=== PATIENT | male | born 1935 | race Caucasian/White ===

== ENCOUNTER 2016-07-18 15:54 | Inpatient (IN) ==
[2016-07-18] MEDS ORDERED: Ipratropium/Albuterol Neb 3 ML IH ONE (16:25)
--- NOTE | 2016-07-18 17:00 | Emergency Department Note ---
Disposition Clinical Impression: Lower gastrointestinal hemorrhage Pneumonia Qualifiers: Pneumonia type: due to unspecified organism Laterality: left Lung location: lower lobe of lung Qualified Code(s): J18.1 - Lobar pneumonia, unspecified organism Disposition: Admitted As Inpatient Condition: Good Time of Disposition: 18:19 General Adult HPI - General Chief complaint: ED GI Bleed Stated complaint: GI bleed/ C. diff + Time Seen by Provider: 07/18/16 15:59 Source: patient, family, EMS Limitations: no limitations Nursing Notes Reviewed: Yes Vital Signs Reviewed: Yes - History of Present Illness HPI Narrative: [place] being sent [place] the [place] for [place]. One-month history of blood in his stool. Recent discharge on Friday after being treated for septic shock and pneumonia. Patient still having a productive cough and shortness of breath. Does have a history of COPD. Denies any chest pain nausea vomiting or diarrhea. Denies any abdominal pain. Pain Scale: 0 - Related Data Home Medications Medication Instructions Recorded Confirmed Albuterol Neb [Proventil Neb] 2.5 mg IH QID PRN 07/18/16 07/18/16 Aspirin Enteric Coated [Aspirin EC] 81 mg PO DAILY 07/18/16 07/18/16 Calcium Carbonate/Vitamin D3 1 each PO TID 07/18/16 07/18/16 [Calcium 500-Vit D3 200 Tablet] Capsaicin [Arthritis Pain Relief] 1 appl TP BID PRN 07/18/16 07/18/16 Clopidogrel [Plavix] 75 mg PO DAILY 07/18/16 07/18/16 DULoxetine [Cymbalta] 30 mg PO DAILY 07/18/16 07/18/16 Docusate [Colace] 100 mg PO BID 07/18/16 07/18/16 Finasteride [Proscar] 5 mg PO DAILY 07/18/16 07/18/16 Furosemide [Lasix] 40 mg PO QPM 07/18/16 07/18/16 Furosemide [Lasix] 60 mg PO QAM 07/18/16 07/18/16 Gabapentin [Neurontin] 800 mg PO BID 07/18/16 07/18/16 Metoprolol XL (24 HR) Succ [Toprol 50 mg PO DAILY 07/18/16 07/18/16 XL] Moxifloxacin OPTH Drops [Vigamox] 1 drop OP QID 07/18/16 07/18/16 OxyCODONE Immed Rel [Roxicodone 5 10 mg PO BID 07/18/16 07/18/16 MG] Polyethylene Glycol 3350 17 gm PO DAILY 07/18/16 07/18/16 [Smoothlax] Potassium Chloride [K-Tab ER] 20 meq PO DAILY 07/18/16 07/18/16 PrednisoLONE Acetate 1% Opth 1 drop OP AD 07/18/16 07/18/16 [PredFORTE 1%] Sennosides [Senna] 8.6 mg PO BID 07/18/16 07/18/16 Simvastatin [Zocor] 40 mg PO HS 07/18/16 07/18/16 Spironolactone [Aldactone] 25 mg PO DAILY 07/18/16 07/18/16 Terazosin HCl 2 mg PO HS 07/18/16 07/18/16 Tiotropium [Spiriva] 18 mcg IH 0700 07/18/16 07/18/16 Allergies Allergy/AdvReac Type Severity Reaction Status Date / Time No Known Allergies Allergy Verified 07/18/16 16:07 All systems ED: reviewed and negative except as stated. Constitutional: Denies: fever, chills Cardiovascular: Denies: chest pain, palpitations, syncope Respiratory: Reports: cough, sputum production ("Light colored."). Denies: dyspnea Gastrointestinal: Reports: hematochezia. Denies: abdominal pain, nausea, vomiting, diarrhea Genitourinary: Denies: urgency, dysuria, frequency, hematuria Musculoskeletal: Denies: back pain, neck pain Integumentary: Denies: rash Neurological: Denies: headache, weakness Past Medical History - Past Medical History Attestation: Yes The following information was validated with the patient. Medical history: Reports: CHF, COPD, coronary artery disease, GERD, hypertension , myocardial infarction, renal disease, TIA - Social History Smoking Status: Former smoker Alcohol use: Reports: none Drug use: Reports: none Physical Exam - General Limitations: no limitations General appearance: alert, in no apparent distress - Head Head exam: atraumatic, normocephalic - Eye Eye exam: Present: normal appearance, PERRL, EOMI. Absent: scleral icterus - ENT ENT exam: normal exam, normal oropharynx, mucous membranes moist - Neck Neck exam: Present: normal inspection, full ROM, trachea midline - Chest Chest inspection: Present: normal inspection, symmetric chest wall rise - Respiratory Respiratory exam: Present: wheezes (Left-sided.), other (Rhonchi right lower lobe.) - Cardiovascular Cardiovascular exam: Present: regular rate, normal rhythm, normal heart sounds - Abdominal Exam Abdominal exam: Present: soft, Non-Tender, normal bowel sounds - Extremities Exam Extremities exam: Present: normal inspection, full ROM, normal capillary refill. Absent: tenderness, pedal edema - Back Exam Back exam: Present: normal inspection, full ROM. Absent: tenderness - Neurological Exam Neurological exam: Present: alert - Psychiatric Psychiatric exam: Present: normal affect, normal mood - Skin Skin exam: Present: warm, dry, intact, normal color. Absent: rash, cyanosis, diaphoresis Course Course Narrative: Patient being sent from the [place] for [place] and possible C. difficile. Patient is unaware of why he is actually being sent. He states that he was recently admitted to hospital and treated for pneumonia and discharged on Friday. He states that he has been having shortness of breath and a cough ever since. He denies any fevers at home. He denies any diarrhea however does report blood in his stool. Patient has basic lab work done from the [place]. He has paperwork that shows a C. difficile toxin negative from today. Patient's lung sounds or wheezing on the left and rhonchi on the right lower. His heart sounds are normal. He has no other complaints to me at this time. He has no abdominal pain or chest pain. He is on oxygen and wears this at home as well. Does have a history of COPD as well as CHF. Looking through his paperwork of his recent admission he was in septic shock during that time and was placed on Levophed. We will get a chest x-ray while patient is here. There were no images sent from the [place]. We will also given occult blood stool. We will likely admit patient for continued pneumonia. - Reevaluation(s) Reevaluation #1: patient has a left lower lobe pneumonia. Also lower GI bleed. We will admit patient for IV antibiotics and evaluation for the GI bleed. Patient is agreeable to this. He meets criteria for healthcare associated pneumonia. We will begin triple antibody therapy. Time: 18:14 - Consultations Consultation #1: MINDA Cote accepted Pt in stable condition. Time: 18:17 Vital Signs Temperature 98.1 F 05/11/17 15:57 Pulse Rate 83 07/18/16 15:57 Respiratory Rate 18 07/18/16 15:57 Blood Pressure 138/105 07/18/16 15:57 O2 Sat by Pulse Oximetry 95 07/18/16 15:57 Temperature 98.1 F 07/18/16 15:57 Pulse Rate 83 07/18/16 18:41 Respiratory Rate 18 07/18/16 18:41 Blood Pressure 127/66 07/18/16 18:41 O2 Sat by Pulse Oximetry 100 07/18/16 18:41 Oxygen Delivery Oxygen Delivery Nasal Cannula Medical Decision Making - Medical Records Medical records reviewed: Yes I reviewed the patient's medical records. - Lab Data Lab results reviewed: Yes I reviewed the patient's lab results. Result diagrams: 07/18/16 17:55 07/18/16 17:55 Lab Results 07/18/16 07/18/16 07/18/16 Range/Units 16:57 17:55 17:55 Hgb (12.9-16.9) g/dL Hct (37.5-50.1) % Sodium 137 (136-145) mEq/L Potassium 4.0 (3.5-4.5) mEq/L Chloride 100 (98-109) mEq/L Carbon Dioxide 24 (19-29) mEq/L BUN 30 H (8-26) mg/dL Creatinine 1.11 (0.72-1.25) mg/dL Est GFR ( Amer) > 60 (> 60) Est GFR (Non-Af Amer) > 60 (> 60) BUN/Creatinine Ratio 27 H (6-26) Glucose 207 H (70-99) mg/dL Calculated Osmolality 296 (280-300) Lactic Acid (0.5-2.2) mmol/L Calcium 9.4 (8.6-10.8) mg/dL Troponin I 0.23 H* (0-0.03) ng/mL Stool Occult Blood Positive A (Negative) 07/18/16 07/18/16 Range/Units 17:55 17:55 Hgb 9.4 L (12.9-16.9) g/dL Hct 28.5 L (37.5-50.1) % Sodium (136-145) mEq/L Potassium (3.5-4.5) mEq/L Chloride (98-109) mEq/L Carbon Dioxide (19-29) mEq/L BUN (8-26) mg/dL Creatinine (0.72-1.25) mg/dL Est GFR ( Amer) (> 60) Est GFR (Non-Af Amer) (> 60) BUN/Creatinine Ratio (6-26) Glucose (70-99) mg/dL Calculated Osmolality (280-300) Lactic Acid 1.8 (0.5-2.2) mmol/L Calcium (8.6-10.8) mg/dL Troponin I (0-0.03) ng/mL Stool Occult Blood (Negative) - Radiology Data Radiology results reviewed: Yes I reviewed the patient's radiology results. Chest X-Ray 07/18/16 16:24 IMPRESSION: Left lower lobe airspace disease with small pleural effusion, pneumonia suspected D/ / José Miguel Vela MD / José Miguel Vela MD Interpreting Provider: José Miguel Vela MD - EKG Data EKG #1 EKG attestation: Yes I reviewed and interpreted this EKG. EKG results narrative: Normal sinus rhythm at a rate of 80. [place] interval is 174. QRS duration is 145. QT is 384. QTC is 419. Patient has a left bundle branch block. There are no significant changes from previous EKG dated 09/20/2011. Attestation Statement - Attestation Attestation: I, Pavan Garsia, examined this patient and my medical decision-making was reviewed with the HR INTERNSHIP/PA/Advanced Practice Nurse/Resident Physician. I agree with the documented findings, disposition and treatment plan as described except to the extent set forth below. 80[facility], [facility], and possible cardiac thrombus. [facility] negative C. difficile toxin assay, hemoglobin of 9.9. Patient is a poor historian and is unable to give a history regarding his case and presentation however he does state that he is short of breath and feels weak and fatigued. On physical examination patient has rhonchi in the posterior lung [place] bilaterally. His abdomen is soft to palpation and without rigidity, guarding, or rebound. On repeat H&H the patient's hemoglobin is 9.4. Patient has an elevated troponin to 0.23. Patient has a rectal exam that shows melanotic stool and is heme positive. We will not be giving heparin or ASA for elevated troponin secondary to GI bleeding. Patient has no chest pain emergency Department. Patient is comfortable with the plan for admission to hospital for continuation of his care.
[2016-07-18 18:08] LABS: Hematocrit 28.5 % (37.5-50.1); Hemoglobin 9.4 g/dL (12.9-16.9)
[2016-07-18] MEDS ORDERED: Piperacillin/Tazobactam 3.375 GM in D5% in Water (Mini-Bag+) 100 ML IVPB ONE (18:17)
[2016-07-18] MEDS ORDERED: Vancomycin 1,250 MG in D5% in Water 250 ML IVPB ONE (18:17)
[2016-07-18] MEDS ORDERED: Levofloxacin 750 MG/150 ML 750 MG/150 ML BAG IVPB ONE (18:17)
[2016-07-18 18:23] LABS: BUN/Creatinine Ratio 27 (6-26); Blood Urea Nitrogen 30 mg/dL (8-26); Calcium 9.4 mg/dL (8.6-10.8); Carbon Dioxide 24 mEq/L (19-29); Chloride 100 mEq/L (98-109); Glucose 207 mg/dL (70-99); Osmolality,Calculated 296 (280-300); Sodium 137 mEq/L (136-145); eGFR For African Americans > 60 (> 60); eGFR For Non-African Americans > 60 (> 60)
--- NOTE | 2016-07-18 19:07 | Internal Med History&Physical ---
Date of Encounter: 07/18/16 Time of Encounter: 19:07 Internal Medicine - H&P: HPI History of present illness: Mr. Mejia is a 80 year old male Past Med Surg Social Fam HX - Past Medical History Medical history: CHF, COPD, coronary artery disease, GERD, hypertension, myocardial infarction, renal disease, TIA - Social History Smoking Status: Former smoker Alcohol use: none Drug use: none Internal Medicine - H&P: Meds Albuterol Neb [Proventil Neb] 2.5 mg IH QID PRN 07/18/16 [History] Aspirin Enteric Coated [Aspirin EC] 81 mg PO DAILY 07/18/16 [History] Calcium Carbonate/Vitamin D3 [Calcium 500-Vit D3 200 Tablet] 1 each PO TID 07/18 [History] Capsaicin [Arthritis Pain Relief] 1 appl TP BID PRN 07/18/16 [History] Clopidogrel [Plavix] 75 mg PO DAILY 07/18/16 [History] DULoxetine [Cymbalta] 30 mg PO DAILY 07/18/16 [History] Docusate [Colace] 100 mg PO BID 07/18/16 [History] Finasteride [Proscar] 5 mg PO DAILY 07/18/16 [History] Furosemide [Lasix] 40 mg PO QPM 07/18/16 [History] Furosemide [Lasix] 60 mg PO QAM 07/18/16 [History] Gabapentin [Neurontin] 800 mg PO BID 07/18/16 [History] Metoprolol XL (24 HR) Succ [Toprol XL] 50 mg PO DAILY 07/18/16 [History] Moxifloxacin OPTH Drops [Vigamox] 1 drop OP QID 07/18/16 [History] OxyCODONE Immed Rel [Roxicodone 5 MG] 10 mg PO BID 07/18/16 [History] Polyethylene Glycol 3350 [Smoothlax] 17 gm PO DAILY 07/18/16 [History] Potassium Chloride [K-Tab ER] 20 meq PO DAILY 07/18/16 [History] PrednisoLONE Acetate 1% Opth [PredFORTE 1%] 1 drop OP AD 07/18/16 [History] Sennosides [Senna] 8.6 mg PO BID 07/18/16 [History] Simvastatin [Zocor] 40 mg PO HS 07/18/16 [History] Spironolactone [Aldactone] 25 mg PO DAILY 07/18/16 [History] Terazosin HCl 2 mg PO HS 07/18/16 [History] Tiotropium [Spiriva] 18 mcg IH 0700 07/18/16 [History] Allergies No Known Allergies Allergy (Verified 07/18/16 16:07) All Systems PM: A 10-system review of systems was performed and is negative for pertinent findings except as documented above in the HPI. - Constitutional Vitals: Temp Pulse Resp BP Pulse Ox 98.1 F 83 18 127/66 100 07/18/16 15:57 07/18/16 18:41 07/18/16 18:41 07/18/16 18:41 07/18/16 18:41 Internal Med - H&P Results - Labs CBC & Chem 7: 07/18/16 17:55 07/18/16 17:55
[2016-07-18] MEDS ORDERED: Naloxone 0.4 MG/ML INJ IVP PRN (21:03)
[2016-07-18] MEDS ORDERED: Ipratropium/Albuterol Neb 3 ML IH PRN (21:08)
--- NOTE | 2016-07-18 21:36 | Internal Med History&Physical ---
<Mati Vera - Last Filed: 07/18/16 21:31> Date of Encounter: 07/18/16 Time of Encounter: 21:31 Assessment and Plan (1) Lower gastrointestinal hemorrhage Current visit: Yes Status: Acute Hemoccult-positive stool with a hemoglobin of 9.4 presentation. Per records the patient has had one stool for over a month however the patient denies this but he is somewhat a poor historian. We will hold aspirin and Plavix. We will trend hemoglobin, consult GI. Type and screen. (2) Pneumonia Current visit: Yes Status: Acute Patient was recently admitted for septic shock due to pneumonia at [facility] and was discharged on July 26. Patient did not require intubation. Patient was treated with Rocephin, Zithromax, vancomycin. Patient has persistent left lower lobe infiltrate on chest x-ray however clinically he does not have any signs or symptoms of pneumonia. I do believe the x-ray findings are residual from his recent pneumonia therefore we will hold off on treating with antibiotics at this time. Qualifiers: Pneumonia type: due to unspecified organism Laterality: unspecified laterality Lung location: unspecified part of lung Qualified Code(s): J18.9 - Pneumonia, unspecified organism (3) Coronary artery disease Current visit: Yes Status: Acute Stable this time. Patient is on dual antiplatelet therapy however there is nothing in the records that indicates a stent placement in the last year and therefore will hold aspirin and Plavix due to concern for GI bleed as discussed above. Patient does have a minor elevated troponin but EKG is no signs of ischemic changes and the patient has no complaints of chest pain. We will trend troponins, obtain an echo. Qualifiers: Coronary Disease-Associated Artery/Lesion type: unspecified vessel or lesion type [place] vs. transplanted heart: [place] heart Associated angina: without angina Qualified Code(s): I25.10 - Atherosclerotic heart disease of [place] coronary artery without angina pectoris (4) COPD (chronic obstructive pulmonary disease) Current visit: Yes Status: Acute Stable this time. No evidence of exacerbation. When necessary duo nebs. Qualifiers: COPD type: unspecified COPD Qualified Code(s): J44.9 - Chronic obstructive pulmonary disease, unspecified (5) Ischemic cardiomyopathy Current visit: Yes Status: Acute With defibrillator present. No evidence of arrhythmia. We will obtain an echo. (6) Hypertension Current visit: Yes Status: Acute Stable this time. Continue home medications. Qualifiers: Hypertension type: essential hypertension Qualified Code(s): I10 - Essential (primary) hypertension (7) DVT prophylaxis Current visit: Yes Status: Acute Due to concern for GI bleed pharmacologic DVT prophylaxis is contraindicated at this time. We will use EPCDs. Internal Medicine - H&P: HPI Chief complaint: GI bleed Admitted From: Emergency Dept Plans for Post Hospital Care: Home History of present illness: Mr. Mejia is a 80 year old male with history of COPD, recent pneumonia is admitted for GI bleed. Patient is an extremely poor historian so history is somewhat limited. Patient was recently hospitalized at [facility] in [place] for septic shock due to pneumonia. Patient was discharged on July 16. [facility] for concerns for GI bleed. Per records review the patient has had one month of blood in the stool however the patient denied blood in the stool to me. Patient does report mild shortness of breath but otherwise denies cough, fever, chills. Patient has no other complaints at this time. Patient states that he feels pretty good. Past Med Surg Social Fam HX - Past Medical History Medical history: CHF, COPD, coronary artery disease, GERD, hypertension, myocardial infarction, renal disease, TIA - Past Surgical History Surgical History: non-contributory - Social History Smoking Status: Former smoker Alcohol use: none Drug use: none Internal Medicine - H&P: Meds Albuterol Neb [Proventil Neb] 2.5 mg IH QID PRN 07/18/16 [History] Aspirin Enteric Coated [Aspirin EC] 81 mg PO DAILY 07/18/16 [History] Calcium Carbonate/Vitamin D3 [Calcium 500-Vit D3 200 Tablet] 1 each PO TID 07/18 [History] Capsaicin [Arthritis Pain Relief] 1 appl TP BID PRN 07/18/16 [History] Clopidogrel [Plavix] 75 mg PO DAILY 07/18/16 [History] DULoxetine [Cymbalta] 30 mg PO DAILY 07/18/16 [History] Docusate [Colace] 100 mg PO BID 07/18/16 [History] Finasteride [Proscar] 5 mg PO DAILY 07/18/16 [History] Furosemide [Lasix] 40 mg PO QPM 07/18/16 [History] Furosemide [Lasix] 60 mg PO QAM 07/18/16 [History] Gabapentin [Neurontin] 800 mg PO BID 07/18/16 [History] Metoprolol XL (24 HR) Succ [Toprol XL] 50 mg PO DAILY 07/18/16 [History] Moxifloxacin OPTH Drops [Vigamox] 1 drop OP QID 07/18/16 [History] OxyCODONE Immed Rel [Roxicodone 5 MG] 10 mg PO BID 07/18/16 [History] Polyethylene Glycol 3350 [Smoothlax] 17 gm PO DAILY 07/18/16 [History] Potassium Chloride [K-Tab ER] 20 meq PO DAILY 07/18/16 [History] PrednisoLONE Acetate 1% Opth [PredFORTE 1%] 1 drop OP AD 07/18/16 [History] Sennosides [Senna] 8.6 mg PO BID 07/18/16 [History] Simvastatin [Zocor] 40 mg PO HS 07/18/16 [History] Spironolactone [Aldactone] 25 mg PO DAILY 07/18/16 [History] Terazosin HCl 2 mg PO HS 07/18/16 [History] Tiotropium [Spiriva] 18 mcg IH 0700 07/18/16 [History] Allergies No Known Allergies Allergy (Verified 07/18/16 16:07) ROS unobtainable: due to mental status (Poor historian unable to complete review of systems.) All Systems PM: A 10-system review of systems was performed and is negative for pertinent findings except as documented above in the HPI. - Constitutional Vitals: Temp Pulse Resp BP Pulse Ox 97.3 F L 81 16 145/84 99 07/18/16 20:14 07/18/16 20:14 07/18/16 20:14 07/18/16 20:14 07/18/16 20:14 General appearance: Present: A&O X 2 (Person and place but not time), pleasant, no acute distress - Head Head exam: Present: atraumatic, normal inspection, normocephalic - ENT ENT exam: Present: mucous membranes moist - Respiratory Respiratory exam: Present: CTAB. Absent: rales, respiratory distress, rhonchi, wheezes, tachypnea - Cardiovascular Cardiovascular exam: Present: RRR. Absent: gallop, rubs, systolic murmur - GI/Abdominal GI/Abdominal exam: Present: normal bowel sounds, soft. Absent: distended, tenderness - Rectal Rectal exam: Present: deferred - Extremities Exam Extremities exam: Present: warm. Absent: pedal edema, tenderness - Neurological Exam Neurological exam: Present: alert, no focal deficits. Absent: oriented X3 ( Oriented to person and place only.) Internal Med - H&P Results - Labs CBC & Chem 7: 07/18/16 17:55 07/18/16 17:55 <NorbertopamFermín Eleazar - Last Filed: 07/19/16 00:14> Date of Encounter: 07/18/16 Internal Medicine - H&P: HPI History of present illness: Mr. Mejia is a 80 year old male Past Med Surg Social Fam HX - Additional Family History Additional family history: could not be obtained due to dementia All Systems PM: A 10-system review of systems was performed and is negative for pertinent findings except as documented above in the HPI. - Constitutional Vitals: Temp Pulse Resp BP Pulse Ox 97.3 F L 81 16 145/84 99 07/18/16 20:14 07/18/16 20:14 07/18/16 20:14 07/18/16 20:14 07/18/16 20:14 Internal Med - H&P Results - Labs CBC & Chem 7: 07/18/16 21:35 07/18/16 17:55 Labs: Short CBC 07/18/16 Range/Units 21:35 WBC 12.1 H (4.3-11.1) K/mcL Hgb 8.6 L (12.9-16.9) g/dL Hct 26.0 L (37.5-50.1) % Plt Count 241 (140-400) K/mcL Neutrophils # 9.8 H (1.6-8.9) K/mcL - Diagnostic Studies Chest x-ray Status: image reviewed by me - Attending Attestation I personally interviewed and examined this patient and my medical decision- making was reviewed with the Resident Physician. I agree with the documented findings, disposition and treatment plan as described.
[2016-07-18 21:43] LABS: Basophils % 0.1 %; Hemoglobin 8.6 g/dL (12.9-16.9); Immature Granulocytes % 2.6 % (0-4); Lymphocytes # 1.1 K/mcL (0.6-4.6); Lymphocytes % 9.3 %; Mean Corpuscular HGB Conc 33.1 g/dL (31.6-35.5); Mean Corpuscular Hemoglobin 29.8 pg (28.0-33.3); Mean Platelet Volume 9.9 fL (9.4-12.4); Monocytes # 0.9 K/mcL (0.0-1.3); Monocytes % 7.1 %; Neutrophils # 9.8 K/mcL (1.6-8.9); Nucleated Red Blood Cells 0.2 /100 WBC (0); Platelet Count 241 K/mcL (140-400); Red Blood Count 2.89 M/mcL (4.19-5.50); Segmented Neutrophils % 80.9 %
[2016-07-18 21:48] LABS: INR 1.5; Prothrombin Time 16.2 Seconds (9.4-12.1)
[2016-07-19 01:57] LABS: Hematocrit 24.7 % (37.5-50.1); Hemoglobin 8.3 g/dL (12.9-16.9)
[2016-07-19 06:55] LABS: BUN/Creatinine Ratio 24 (6-26); Blood Urea Nitrogen 24 mg/dL (8-26); Calcium 8.5 mg/dL (8.6-10.8); Carbon Dioxide 27 mEq/L (19-29); Chloride 102 mEq/L (98-109); Glucose 168 mg/dL (70-99); Osmolality,Calculated 292 (280-300); Potassium 3.8 mEq/L (3.5-4.5); Sodium 137 mEq/L (136-145); eGFR For African Americans > 60 (> 60); eGFR For Non-African Americans > 60 (> 60)
[2016-07-19 07:12] LABS: Basophils % 0.1 %; Hematocrit 25.2 % (37.5-50.1); Hemoglobin 8.4 g/dL (12.9-16.9); Immature Granulocytes % 1.9 % (0-4); Lymphocytes # 1.1 K/mcL (0.6-4.6); Lymphocytes % 10.6 %; Mean Corpuscular HGB Conc 33.3 g/dL (31.6-35.5); Mean Corpuscular Hemoglobin 30.4 pg (28.0-33.3); Mean Corpuscular Volume 91.3 fL (83.0-100.0); Mean Platelet Volume 10.5 fL (9.4-12.4); Monocytes # 0.9 K/mcL (0.0-1.3); Monocytes % 8.5 %; Neutrophils # 8.4 K/mcL (1.6-8.9); Nucleated Red Blood Cells 0.2 /100 WBC (0); Platelet Count 231 K/mcL (140-400); Red Blood Count 2.76 M/mcL (4.19-5.50); Red Cell Distribution Width 14.3 % (11.5-14.5); Segmented Neutrophils % 78.9 %
--- NOTE | 2016-07-19 08:41 | Gastroenterology Consult Note ---
<Celi Starr - Last Filed: 07/19/16 08:50> Date of Encounter: 07/19/16 Time of Encounter: 08:35 - Assessment and plan (1) Anemia Current Visit: Yes Status: Acute Assessment and plan: Dropped from 9.4 to 8.3 currently. Has been typed/crossed. Has elevated troponins in initial labs. Qualifiers: Anemia type: unspecified type Qualified Code(s): D64.9 - Anemia, unspecified (2) GIB (gastrointestinal bleeding) Current Visit: Yes Status: Acute Assessment and plan: EGD today to r/o esophagitis, gastritis, duodenitis, PUD, MW tear, polyp, tumor , varices. Consent was obtained from spouse, Anny Mejia via telephone with another RN. Qualifiers: GI bleed type/associated pathology: unspecified gastrointestinal hemorrhage type Qualified Code(s): K92.2 - Gastrointestinal hemorrhage, unspecified - Time Spent With Patient Total time spent is greater than 50% in coordination of care (as documented) at patient's floor/unit and/or counseling patient: less than 15 minutes GI History of Present Illness - Data of Consult Patient: new to practice Consult date: 07/19/16 Requesting Physician: Jean Maya DO - Consult Narrative Reason for consult: GIB History of present illness: Mr. Mejia is a 80 year old male with a PMH significant for COPD, cardiomyopathy with AICD, home oxygen use, CHF. Patient was recently hospitalized at [facility] in [place] for septic shock due to pneumonia. Patient was discharged on July 16. [facility] for concerns for GI bleed. C. diff testing negative at [facility]. Patient is unaware of why he is actually being sent and a poor historian. He admitted he had been having rectal bleeding but that had stopped. CHRISTIANO in ED revealed melena and positive hemocult testing. Patient denies any other complaints during my exam. Patient denies knowledge of prior colonoscopy/EGD procedures. Denies dysphagia, N/V, indigestion/heartburn, abd pain. Colonoscopy: None noted EGD: None noted Past Med Surg Social Fam HX - Past Medical History Medical history: CHF, COPD, coronary artery disease, GERD, hypertension, myocardial infarction, renal disease, TIA - Past Surgical History Surgical History: non-contributory - Social History Smoking Status: Former smoker Alcohol use: none Drug use: none - Gastrointestinal Anticoagulation Use: Plavix Number of BM Per Day: daily Gastrointestinal: Present: hematochezia - Constitutional Constitutional: as per HPI - EENT Eyes: as per HPI Ears: Present: as per HPI Nose, mouth and throat: Present: as per HPI - Cardiovascular Cardiovascular ROS: Present: as per HPI - Respiratory Respiratory IM: Present: dyspnea - Neurological ROS Neurological GI: Present: as per HPI - Hematologic/Lymphatic Hematologic/Lymphatic pediatric: Present: as per HPI - Musculoskeletal Musculoskeletal ROS GI: Present: as per HPI - Integumentary Integumentary GI: Present: as per HPI - Psychiatric ROS Psychiatric GI: Present: as per HPI - Endocrine Endocrine IM: Present: as per HPI - Constitutional Vitals: Temp Pulse Resp BP Pulse Ox 98.2 F 69 16 124/72 97 07/19/16 07:36 07/19/16 07:36 07/19/16 07:36 07/19/16 07:36 07/19/16 07:36 General appearance: Present: A&O X 2, pleasant, no acute distress, answers questions appropriately - Head Head exam: Present: atraumatic, normocephalic - Eye Eye exam: Present: normal appearance, sclera anicteric - ENT ENT exam: Present: mucous membranes moist - Neck Neck exam general surgery: Present: normal inspection, trachea midline - Respiratory Respiratory exam: Present: wheezes - Cardiovascular Cardiovascular exam: Present: RRR, +S1, +S2 Additional comments: PM/AICD L upper chest - GI/Abdominal GI/Abdominal exam: Present: normal bowel sounds, soft, no peritoneal signs - Rectal Rectal exam: Present: deferred - Extremities Exam Extremities exam: Present: warm - Neurological Exam Neurological exam: Present: no focal deficits - Psychiatric Psychiatric exam: Present: normal affect, normal mood - Skin Skin exam: Present: dry, intact, normal color, warm Results - Labs CBC & Chem 7: 07/19/16 06:34 07/19/16 06:34 Labs: Last Result Calcium 8.5 mg/dL (8.6-10.8) L 07/19/16 06:34 Troponin I 0.22 ng/mL (0-0.03) H* 07/19/16 06:34 Stool Occult Blood Positive (Negative) A 07/18/16 16:57 Entire Visit Hgb 8.4 g/dL (12.9-16.9) L 07/19/16 06:34 Hct 25.2 % (37.5-50.1) L 07/19/16 06:34 PT 16.2 Seconds (9.4-12.1) H 07/18/16 21:35 - ABG ABG results: PT/INR, D-dimer PT 16.2 Seconds (9.4-12.1) H 07/18/16 21:35 Consult Discharge Plan - Plan [facility]errals: [facility]Primary Care Provider[facility] - <Matias Sandoval - Last Filed: 07/19/16 09:27> Date of Encounter: 07/19/16 - Time Spent With Patient Total time spent is greater than 50% in coordination of care (as documented) at patient's floor/unit and/or counseling patient: GI History of Present Illness - Data of Consult Requesting Physician: Jean Maya DO - Consult Narrative History of present illness: Mr. Mejia is a 80 year old male - Constitutional Vitals: Temp Pulse Resp BP Pulse Ox 98.2 F 78 16 138/78 99 07/19/16 08:56 07/19/16 09:10 07/19/16 09:10 07/19/16 09:10 07/19/16 09:10 Results - Labs CBC & Chem 7: 07/19/16 06:34 07/19/16 06:34 Labs: Last Result Calcium 8.5 mg/dL (8.6-10.8) L 07/19/16 06:34 Troponin I 0.22 ng/mL (0-0.03) H* 07/19/16 06:34 Stool Occult Blood Positive (Negative) A 07/18/16 16:57 Entire Visit Hgb 8.4 g/dL (12.9-16.9) L 07/19/16 06:34 Hct 25.2 % (37.5-50.1) L 07/19/16 06:34 PT 16.2 Seconds (9.4-12.1) H 07/18/16 21:35 - ABG ABG results: PT/INR, D-dimer PT 16.2 Seconds (9.4-12.1) H 07/18/16 21:35 - Attending Attestation I examined this patient and my medical decision-making was reviewed with the HAND INSERTER OPERATOR/PA/Advanced Practice Nurse/Resident Physician. I agree with the documented findings, disposition and treatment plan as described except to the extent set forth below.
[2016-07-19] MEDS ORDERED: *HR* Midazolam HCl 5 MG/5 ML VIAL IVP ONE (08:44)
[2016-07-19] MEDS ORDERED: *HR* FentaNYL (PF) 100 MCG/2 ML VIAL ONE (08:44)
[2016-07-19] MEDS ORDERED: *HR* Midazolam HCl 5 MG/5 ML VIAL IVP PRN (08:47)
[2016-07-19] MEDS ORDERED: Simethicone 40 MG/0.6 ML MLS IR ONE (08:47)
[2016-07-19] MEDS ORDERED: Tetracaine/Benzocaine/Butamben 200MG/SPRAY (100SPY/BOT) MM ONE (08:47)
[2016-07-19] MEDS ORDERED: *HR* FentaNYL (PF) 100 MCG/2 ML VIAL IVP PRN (08:47)
--- NOTE | 2016-07-19 08:47 | Pre-Sedation Evaluation ---
Pre-sedation evaluation - Pre-sedation checklist Date of procedure: 07/19/16 Recent Vitals: Last Vital Signs Temp 98.2 F 07/19/16 07:36 Pulse 69 07/19/16 07:36 Resp 16 07/19/16 07:36 BP 124/72 07/19/16 07:36 Pulse Ox 97 07/19/16 07:36 ASA Classification *see protocol: CLASS III-Severe systemic disease Plan of Care: Pt appropriate candidate for procedure/moderate/conscious sedation , Risks/benefits of procedure/sedation discussed w/ patient/family
[2016-07-19] MEDS ORDERED: 0.9 % Sodium Chloride 1,000 ML IVC SCH (09:00)
[2016-07-19] MEDS: Pantoprazole 40 MG in 0.9 % Sodium Chloride Mini Bag 100 ML IVC SCH ×2 (10:52→18:14)
[2016-07-19] MEDS ORDERED: Perflutren Lipid Microsphere 1.3 ML in 0.9 % Sodium Chloride 8.7 ML IVP ONE (11:58)
[2016-07-19] MEDS ORDERED: Perflutren Lipid Microsphere 2 ML VIAL ONE (12:01)
--- NOTE | 2016-07-19 13:02 | ECHO - Doppler Report ---
Echo with Imaging Enhancement Agent Name: Bk Mejia Date of Study: 07/19/2016 Date: 1935 Ht: 69.0 in Medical Record#: [id number] Age: 80 Wt: 174.0 lb Gender: Male BSA: 1.95 Order #: [id number] Location: [facility] Room #: [id number] Reading Physician: Darian Hutchison DO, [facility], [place] [employer] Administrator: Ariana Fischer RVT, [facility] Ordering Physician: Mati Vera DO Primary Physician: [facility] Indications: Elevated trop Impressions: LVEF 30%. Normal LV chamber size. Severe global left ventricular systolic dysfunction. Atypical septal motion consistent with paced rhythm. Mild left ventricular diastolic dysfunction. There is a left ventricular apical thrombus. Normal right ventricular structure and function. No evidence of pulmonary hypertension. A device lead was visualized in the right atrium and right ventricle. No significant valvular dysfunction. Dr. Vera notified of findings via [employer]. Left Ventricular Wall Motion: Rest Echo Findings The apex, apical inferior, mid inferior, basal inferior, apical anterior, mid anterior, basal anterior, apical septal, mid inferior septal, basal inferior septal, apical lateral, mid anterior lateral, basal anterior lateral, mid anterior septal, mid inferior lateral, basal anterior septal and basal inferior lateral bell were hypokinetic. Findings: Study Quality * Technically adequate exam. ECG Findings * Sinus rhythm with BBB. Left Ventricle * LVEF 30%. * Normal LV chamber size. * Severe global left ventricular systolic dysfunction. * Atypical septal motion consistent with paced rhythm. * Mild left ventricular diastolic dysfunction. * There is a left ventricular apical thrombus. Right Ventricle * Normal right ventricular structure and function. Left Atrium * Mildly dilated left atrium. Right Atrium * Mildly dilated right atrium. Interatrial Septum * Interatrial septum not well evaluated. Aortic Valve * Aortic valve not well visualized. * No aortic regurgitation. * No aortic stenosis. Mitral Valve * Normal mitral valve structure and function. * No mitral stenosis. * Trace mitral regurgitation. Tricuspid Valve * Normal tricuspid valve structure and function. * Trace tricuspid regurgitation. * No evidence of pulmonary hypertension. Pulmonic Valve * Pulmonic valve not well visualized. Aorta * Normally sized aortic root. Pericardium * The pericardium appears normal. IVC * Normal IVC dimensions and inspiratory collapse. Device lead * A device lead was visualized in the right atrium and right ventricle. Pulmonary Artery * Normal visualized portions of the main pulmonary artery. History Hypertension History of CAD/PTCA Myocardial Infarction Congestive Heart Failure Pacer/ICD Implant 09/18/2011 a Previous Echo was performed. Contrast: Definity 1.3 ml in 8.7 ml of saline 3 ml. Measurements: BP: 138/ 78 2D Normal Values RVIDd: 3.00 cm <2.7 cm IVSd: 1.10 cm 0.6 - 1.0 cm LVIDd: 5.70 cm 3.7 - 5.6 cm LVPWd: 1.00 cm 0.6 - 1.1 cm LVIDs: 4.30 cm 1.5 - 3.6 cm AO: 3.00 cm < 4.0 cm LA: 3.90 cm 2.0 - 4.0cm %FS: 24.60 cm >25 % LA volume: 30 Mitral Valve Dec Time:275.00 msec Peak E:.77 m/sec Peak A:.99 m/sec E/A Ratio:0.8 Peak E' Lat Calixto:6.43 cm/s Peak E' Med Calixto:4.87 cm/s E/E' Lat Ratio:12 E/E' Med Ratio:15.9 Tricuspid Valve TV Regurg Peak Grad: 37.00mmHg TV Regurg Peak Calixto: 3.03m/sec Updated by Darian Hutchison DO, FACLavinia, [place], HEATHER on 07/19/2016 12:55:28 PM electronically signed on 07/19/2016 12:57:36 PM with status of Final Wall Motion Hoffmann: 1=Normal, 2=Hypokinesis, 3=Akinesis, 4=Dyskinesis, 5=Aneurysmal, 6=Hyperkinetic, X=Not Visualized (Blank)=Missing
--- NOTE | 2016-07-19 13:30 | Electrocardiograph Report ---
[place] [id number] Test Date: 2016-07-18 Pat Name: Bk Mejia Department: 105 Room: [facility] Gender: M Communications Planner: KHLOE : 1935 Requested By: Liset Briones Order Number: [id number] Reading MD: Pavan Diane Measurements Intervals [place] Rate: 80 P: 36 WY: 174 QRS: -40 QRSD: 145 T: 99 QT: 384 QTc: 419 Interpretive Statements SINUS RHYTHM LEFT BUNDLE BRANCH BLOCK Electronically Signed On 07-19-2016 13:28:40 EDT by Pavan Diane
--- NOTE | 2016-07-19 13:33 | Cardiology Consult Note ---
Date of Encounter: 07/19/16 Time of Encounter: 13:32 Assessment and Plan (1) LV (left ventricular) mural thrombus Current Visit: Yes Status: Acute LV thrombus seen on TTE. Anticoagulation with warfarin is recommended. Unfortunately he presented with possible GI bleed and acute anemia. Seen to have luiz's esophogus, hiatal hernia, and non-bleeding ulcers seen. Bleeding risk is high. Would benefit from finding source of bleeding d/t high risk of not being anticoagulated. LV thrombus is mentioned in his history although there is no record. May not be a new finding. We will continue to follow. (2) Coronary artery disease Current Visit: Yes Status: Acute H/o of previous PCI and severe 3 vessel CAD seen on [facility] in 2013. Pt declined CABG at that time. Continue statin and bb. Asa on hold d/t bleeding. Restart when ok from GI standpoint. He declines chest pain. Qualifiers: Coronary Disease-Associated Artery/Lesion type: unspecified vessel or lesion type [place] vs. transplanted heart: [place] heart Associated angina: without angina Qualified Code(s): I25.10 - Atherosclerotic heart disease of [place] coronary artery without angina pectoris (3) Ischemic cardiomyopathy Current Visit: Yes Status: Acute EF 30% on current TTE. TTE showed global systolic dysfunction. Atypical septal motion (LBBB), mild diastolic dysfunction, LV apical thrombus. Normal RV size and structure. [facility] EF 25% with severe global hypokenesis with grade three diastolic dysfunction. Restart toprol XL. Add rossana inhibitor if b/p tolerates. Currently euvolemic on exam. ICD in place. Low sodium diet and daily weights. (4) Elevated troponin Current Visit: Yes Status: Acute Troponin elevated at 0.23, 0.22. Demand ischemia in the setting of acute anemia , GI bleed. TTE shows EF improved from May. He denies chest pain. Discussion w patient/family: The assessment and plan as outlined above was discussed with the patient and/or family members who expressed understanding and agreement. All questions were answered. Thank you for involving us in the care of your patient. Please call with any questions. History of Present Illness Consult date: 07/19/16 Requesting physician: Jean Maya Consult reason: LV thrombus Chief complaint: SOB and cough History of present illness: Mr. Mejia is a 80 year old male with history of severe three vessel CAD, ICMP, ICD, COPD on home O2 who [facility] He was reported to have blood in his stool. He was recently hospitalized at [facility] in [place] with pneumonia. Hgb at [facility] was 12.5. Hgb 9.4 on admission to [place]. Troponin elevated at 0.23. Echocardiogram was ordered and LV thrombus seen. Cardiology consulted for further evaluation. He denies active bleeding. Aspirin and plavix held. EGD showed barrets esophogus , hiatal hernia, and non-bleeding ulcers. Hgb 8.4 today. He reports history of intra cardiac thrombus that may have been diagnosed recently at [facility]. He is not on coumadin and does not remember discussing anticoagulation. He is a poor historian. He has h/o previous PCI. LHC 09/2011 showed severe three vessel CAD. EF 25%. He was recommended for CABG at that time. He declined and opted for medical management. He denies chest pain or palpitations. Past Med Surg Social Fam HX - Past Medical History Attestation: Yes The following information was validated with the patient. Medical history: CHF, COPD, coronary artery disease, GERD, hypertension, myocardial infarction, renal disease, TIA - Past Surgical History Surgical History: non-contributory - Social History Smoking Status: Former smoker Alcohol use: none Drug use: none Medications and Allergies Albuterol Neb [Proventil Neb] 2.5 mg IH QID PRN 07/18/16 [History] Aspirin Enteric Coated [Aspirin EC] 81 mg PO DAILY 07/18/16 [History] Calcium Carbonate/Vitamin D3 [Calcium 500-Vit D3 200 Tablet] 1 each PO TID 07/18 [History] Capsaicin [Arthritis Pain Relief] 1 appl TP BID PRN 07/18/16 [History] Clopidogrel [Plavix] 75 mg PO DAILY 07/18/16 [History] DULoxetine [Cymbalta] 30 mg PO DAILY 07/18/16 [History] Docusate [Colace] 100 mg PO BID 07/18/16 [History] Finasteride [Proscar] 5 mg PO DAILY 07/18/16 [History] Furosemide [Lasix] 40 mg PO QPM 07/18/16 [History] Furosemide [Lasix] 60 mg PO QAM 07/18/16 [History] Gabapentin [Neurontin] 800 mg PO BID 07/18/16 [History] Metoprolol XL (24 HR) Succ [Toprol XL] 50 mg PO DAILY 07/18/16 [History] Moxifloxacin OPTH Drops [Vigamox] 1 drop OP QID 07/18/16 [History] OxyCODONE Immed Rel [Roxicodone 5 MG] 10 mg PO BID 07/18/16 [History] Polyethylene Glycol 3350 [Smoothlax] 17 gm PO DAILY 07/18/16 [History] Potassium Chloride [K-Tab ER] 20 meq PO DAILY 07/18/16 [History] PrednisoLONE Acetate 1% Opth [PredFORTE 1%] 1 drop OP AD 07/18/16 [History] Sennosides [Senna] 8.6 mg PO BID 07/18/16 [History] Simvastatin [Zocor] 40 mg PO HS 07/18/16 [History] Spironolactone [Aldactone] 25 mg PO DAILY 07/18/16 [History] Terazosin HCl 2 mg PO HS 07/18/16 [History] Tiotropium [Spiriva] 18 mcg IH 0700 07/18/16 [History] Allergies No Known Allergies Allergy (Verified 07/18/16 16:07) All Systems Review: A 10-system review of systems was performed and is negative for pertinent findings except as documented above in the HPI. Physical Examination Vital Signs Temp Pulse Resp BP Pulse Ox 07/19/16 09:10 78 16 138/78 99 07/19/16 09:05 80 16 143/81 96 07/19/16 09:00 70 16 145/73 94 07/19/16 08:56 98.2 F 79 16 135/79 94 07/19/16 08:00 99 07/19/16 07:36 98.2 F 69 16 124/72 97 07/19/16 04:26 98.1 F 62 18 134/77 100 07/19/16 00:00 98.2 F 70 18 160/91 100 07/18/16 20:14 97.3 F L 81 16 145/84 99 07/18/16 19:49 18 132/75 07/18/16 19:44 81 18 126/67 100 07/18/16 18:41 83 18 127/66 100 07/18/16 18:04 81 20 141/72 100 07/18/16 16:39 100 07/18/16 16:31 18 100 07/18/16 15:57 98.1 F 83 18 138/105 95 Intake and Output 07/18/16 07/19/16 07/19/16 23:59 07:59 15:59 Intake Total 0 / 0 0 / 0 200 / 200 Output Total 150 / 150 Balance 0 / 0 -150 / -150 200 / 200 Intake: IV Fluids 200 / 200 0.9 % Sodium Chloride 1, 200 / 200 000 ML @ 50 mls/hr IVC . Q20H RASHMI Rx#:[id number] Oral 0 / 0 0 / 0 Output: Urine 150 / 150 Other: # Voids 0 0 Weight 76.2 kg General: Conversant, No Apparent Distress HEENT: Atraumatic, Normocephaly, Mucus Membranes Moist Neck: No JVD, Normal carotid pulses Cardiac: Reg Rate and Rhythm, Normal S1 and S2, No Murmur Lungs: Normal Breath Sounds, No Wheeze, Rales, Rhonchi Neuro: Alert and responsive, No focal deficits noted Abdomen: Soft, Non-Tender Skin: No rashes noted on visualized skin Musculoskeletal: No Chest Wall Tenderness Extremities: No Clubbing, No Cyanosis, No Edema, Normal Pulses Results 07/19/16 06:34 07/19/16 06:34 Lab Results 07/18/16 07/18/16 07/19/16 21:35 21:35 00:32 WBC 12.1 H Hgb 8.6 L Hct 26.0 L Plt Count 241 INR 1.5 Sodium Potassium Chloride Carbon Dioxide BUN Creatinine Glucose Calcium Magnesium Troponin I 0.27 H* 07/19/16 07/19/16 07/19/16 00:32 06:34 06:34 WBC 10.7 Hgb 8.3 L 8.4 L Hct 24.7 L 25.2 L Plt Count 231 INR Sodium 137 Potassium 3.8 Chloride 102 Carbon Dioxide 27 BUN 24 Creatinine 1.02 Glucose 168 H Calcium 8.5 L Magnesium 2.0 Troponin I 07/19/16 06:34 WBC Hgb Hct Plt Count INR Sodium Potassium Chloride Carbon Dioxide BUN Creatinine Glucose Calcium Magnesium Troponin I 0.22 H* - Imaging and Cardiology Echo: report reviewed - EKG Interpretation EKG results cardiology: personally reviewed (SR with LBBB) Consult Discharge Plan - Plan [facility]errals: [facility] [Primary Care Provider] -
--- NOTE | 2016-07-19 17:09 | Internal Med Progress Note ---
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 Patient is on PPI drip and Carafate. We will do every 6 H&H's. Qualifiers: GI bleed type/associated pathology: unspecified gastrointestinal hemorrhage type Qualified Code(s): K92.2 - Gastrointestinal hemorrhage, unspecified (2) Pneumonia Current Visit: Yes Status: Resolved Assessment and plan: Patient was in [facility] with septic shock secondary to continue current pneumonia. He was treated with Rocephin and Zithromax. Chest x-ray shows left lower lobe opacity. This seems to be residual from previous pneumonia. There is no clinical indication the patient has pneumonia. He is not hypoxic, do, tachycardic. afebrile. WBC is within normal limits. Lactic acid is 1.9. Lung sounds are clear. Qualifiers: Pneumonia type: due to unspecified organism Laterality: unspecified laterality Lung location: unspecified part of lung Qualified Code(s): J18.9 - Pneumonia, unspecified organism (3) COPD (chronic obstructive pulmonary disease) Current Visit: Yes Status: Acute Assessment and plan: Continue DuoNeb. Patient is not in acute exacerbation. Continue 2 L oxygen. Qualifiers: COPD type: unspecified COPD Qualified Code(s): J44.9 - Chronic obstructive pulmonary disease, unspecified (4) Ischemic cardiomyopathy Current Visit: Yes Status: Acute Assessment and plan: Patient history of ischemic cardiomyopathy with EF of 25%. Patient's previous PCI with 3 vessel coronary artery disease seen on left heart catheter in 2013 patient declined At that time. There is no sign of volume overload. Has elevated troponins, likley 2nd to GI bleed, acute anemia. EF improved from previous ECHO. No active CP. He underwent an echocardiogram today showing a new apical left ventricular thrombus. LVEF 30% Cardiology recommends initiating patient on anticoagulation. Patient is a high risk for bleeding as he presented with an upper GI bleed. He has large nonbleeding duodenal ulcers. We will obtain every 4 H&H's. Cardiology examine patient's device but show no concerns for arrhythmia. We will continue statin and beta alexandra. (5) DVT prophylaxis Current Visit: Yes Status: Acute Assessment and plan: starting heparin drip. - Subjective Interval history: 80-year-old male who presents from the [place]. Patient has had a history of blood in his stool for a month. Patient left AMA from [facility] after being treated for septic shock and coming equine pneumonia. He was on Levophed. Was found to have left lower lobe pneumonia. Treated with Zithromax and ceftriaxone. During that admission patient's hemoglobin was 12. Yesterday he was found to have a hemoglobin of 9.4. GI was consult and patient underwent EGD which showed Dai's esophagus, hiatal hernia, gastritis and multiple nonbleeding duodenal ulcers with no stigmata of bleeding. Patient was started on a PPI drip and Carafate and soft diet. Patient also underwent a chest x-ray which showed left lower lobe consolidation. Left lower lobe consolidation. However he was not started on antibiotics as he was concerned residual findings from previous pneumonia. He has not started on any antibiotics. Patient has been afebrile, normotensive, with a rate around 70s. He has a normal white blood cell count. And lactic acid of 1.8. Patient has a history of ischemic cardiomyopathy with EF of 25%. He had echo in May at the [place] showing severe global hypokinesis of the left ventricle. Patient has AICD/ventricular pacemaker. He presented with an elevated troponin of 1.23, 0.27, 0.22. EKG showed sinus rhythym with LBBB. Patient is on aspirin, Plavix, beta alexandra , Lasix, simvastatin outpatient. Aspirin and Plavix were discontinued due to GI bleed. Patient underwent echocardiogram which showed a left ventricular apical thrombus, left ventricle EF of 30% with severe global left ventricular systolic dysfunction. Patient has severe dementia. Alert oriented to self. Denies any chest pain. Patient lives with his was not able to come to the hospital today. - Constitutional Vitals: Temp Pulse Resp BP Pulse Ox 97.5 F L 81 18 116/74 97 07/19/16 16:00 07/19/16 16:00 07/19/16 16:00 07/19/16 16:00 07/19/16 16:00 General appearance: Present: A&O X 1, pleasant, no acute distress - Respiratory Respiratory exam: Present: CTAB. Absent: accessory muscle use, rales, rhonchi, wheezes - Cardiovascular Cardiovascular exam: Present: RRR, +S1, +S2. Absent: diastolic murmur, gallop, rubs, systolic murmur - GI/Abdominal GI/Abdominal exam: Present: normal bowel sounds, soft, no peritoneal signs. Absent: distended, tenderness - Extremities Exam Extremities exam: Present: warm, radial pulses palpable and symetrical. Absent : calf tenderness, cyanotic, pedal edema - Neurological Exam Neurological exam: Present: alert, CN II-XII intact, no focal deficits. Absent : oriented X3 (to self), pronater drift, facial droop, speech deficit - Psychiatric Psychiatric exam: Present: normal affect, normal mood Internal Medicine: Result - Labs CBC & Chem 7: 07/19/16 06:34 07/19/16 06:34 Labs: Short CBC 07/18/16 07/19/16 07/19/16 Range/Units 21:35 00:32 06:34 WBC 12.1 H 10.7 (4.3-11.1) K/mcL Hgb 8.6 L 8.3 L 8.4 L (12.9-16.9) g/dL Hct 26.0 L 24.7 L 25.2 L (37.5-50.1) % Plt Count 241 231 (140-400) K/mcL Neutrophils # 9.8 H 8.4 (1.6-8.9) K/mcL BMP 07/19/16 06:34 Sodium 137 Potassium 3.8 Chloride 102 Carbon Dioxide 27 BUN 24 Creatinine 1.02 Glucose 168 H Calcium 8.5 L Cardiac Enzymes 07/19/16 07/19/16 Range/Units 00:32 06:34 Troponin I 0.27 H* 0.22 H* (0-0.03) ng/mL - ABG Interpretation ABG results: PT/INR, D-dimer PT 16.2 Seconds (9.4-12.1) H 07/18/16 21:35 Consult Discharge Plan - Plan [facility]errals: [facility] [Primary Care Provider[facility] - <Jean Maya - Last Filed: 07/19/16 19:40> Date of Encounter: 07/19/16 - Assessment and plan (1) GI bleed Current Visit: Yes Status: Acute Qualifiers: GI bleed type/associated pathology: duodenal ulcer Qualified Code(s): K26.4 - Chronic or unspecified duodenal ulcer with hemorrhage (2) Anemia Current Visit: Yes Status: Acute Assessment and plan: Monitor. Qualifiers: Anemia type: other cause Other causes of anemia: acute posthemorrhagic Qualified Code(s): D62 - Acute posthemorrhagic anemia (3) LV (left ventricular) mural thrombus Current Visit: Yes Status: Acute Assessment and plan: On heparin drip (4) Coronary artery disease Current Visit: Yes Status: Acute Assessment and plan: Monitor. Qualifiers: Coronary Disease-Associated Artery/Lesion type: [place] artery [place] vs. transplanted heart: [place] heart Associated angina: without angina Qualified Code(s): I25.10 - Atherosclerotic heart disease of [place] coronary artery without angina pectoris (5) COPD (chronic obstructive pulmonary disease) Current Visit: Yes Status: Acute Qualifiers: COPD type: unspecified COPD Qualified Code(s): J44.9 - Chronic obstructive pulmonary disease, unspecified (6) Hypertension Current Visit: Yes Status: Acute Assessment and plan: Monitor Qualifiers: Hypertension type: essential hypertension Qualified Code(s): I10 - Essential (primary) hypertension (7) Ischemic cardiomyopathy Current Visit: Yes Status: Acute - Constitutional Vitals: Temp Pulse Resp BP Pulse Ox 97.5 F L 81 18 116/74 97 07/19/16 16:00 07/19/16 16:00 07/19/16 16:00 07/19/16 16:00 07/19/16 16:00 Internal Medicine: Result - Labs CBC & Chem 7: 07/19/16 17:32 07/19/16 06:34 Labs: Short CBC 07/18/16 07/19/16 07/19/16 Range/Units 21:35 00:32 06:34 WBC 12.1 H 10.7 (4.3-11.1) K/mcL Hgb 8.6 L 8.3 L 8.4 L (12.9-16.9) g/dL Hct 26.0 L 24.7 L 25.2 L (37.5-50.1) % Plt Count 241 231 (140-400) K/mcL Neutrophils # 9.8 H 8.4 (1.6-8.9) K/mcL 07/19/16 Range/Units 17:32 WBC 12.0 H (4.3-11.1) K/mcL Hgb 8.8 L (12.9-16.9) g/dL Hct 27.3 L (37.5-50.1) % Plt Count 270 (140-400) K/mcL Neutrophils # (1.6-8.9) K/mcL BMP 07/19/16 06:34 Sodium 137 Potassium 3.8 Chloride 102 Carbon Dioxide 27 BUN 24 Creatinine 1.02 Glucose 168 H Calcium 8.5 L Cardiac Enzymes 07/19/16 07/19/16 Range/Units 00:32 06:34 Troponin I 0.27 H* 0.22 H* (0-0.03) ng/mL - ABG Interpretation ABG results: PT/INR, D-dimer PT 15.3 Seconds (9.4-12.1) H 07/19/16 17:32 - Attending Attestation I examined this patient and my medical decision-making was reviewed with the Resident Physician on 07/19/16. I agree with the documented findings, disposition and treatment plan as described except to the extent set forth below. Mr. Mejia is currently admitted for acute GI bleed and anemia of blood loss. He has been found to have a LV thrombus and has been started on heparin (after discussion with ). He is high risk due to potential for bleeding. Mr. Mejia feels OK. Tolerated the EGD. He is now on heparin. No other complaints No fever or chills. Exam Alert. Comfortable Heart reg Lungs clear Abd soft I/P 1. GI bleed 2. Anemia 3. LV thrombus Further diagnoses and plan as above.
[2016-07-19] MEDS ORDERED: *HR* Heparin 5,000 UNIT/ML VIAL IVP PRN ×2 (17:15)
[2016-07-19] MEDS ORDERED: *HR* Heparin 5,000 UNIT/ML VIAL IVP ONE (17:15)
[2016-07-19 17:47] LABS: Hematocrit 27.3 % (37.5-50.1); Hemoglobin 8.8 g/dL (12.9-16.9); Mean Corpuscular HGB Conc 32.2 g/dL (31.6-35.5); Mean Corpuscular Hemoglobin 29.9 pg (28.0-33.3); Mean Corpuscular Volume 92.9 fL (83.0-100.0); Mean Platelet Volume 10.4 fL (9.4-12.4); Platelet Count 270 K/mcL (140-400); Red Blood Count 2.94 M/mcL (4.19-5.50); Red Cell Distribution Width 14.3 % (11.5-14.5)
[2016-07-19 17:53] LABS: INR 1.4; Prothrombin Time 15.3 Seconds (9.4-12.1)
[2016-07-19] MEDS: Heparin 25,000 UNIT/500 ML D5W 25,000 UNIT/500 ML MLS IVC SCH (18:30)
[2016-07-19 22:41] LABS: Hematocrit 26.2 % (37.5-50.1); Hemoglobin 8.6 g/dL (12.9-16.9)
[2016-07-20 00:55] LABS: Basophils % 0.1 %; Eosinophils % 0.3 %; Hematocrit 22.7 % (37.5-50.1); Hemoglobin 7.6 g/dL (12.9-16.9); Lymphocytes # 1.5 K/mcL (0.6-4.6); Lymphocytes % 16.8 %; Mean Corpuscular HGB Conc 33.5 g/dL (31.6-35.5); Mean Corpuscular Hemoglobin 30.5 pg (28.0-33.3); Mean Corpuscular Volume 91.2 fL (83.0-100.0); Mean Platelet Volume 10.3 fL (9.4-12.4); Monocytes # 0.9 K/mcL (0.0-1.3); Monocytes % 9.6 %; Neutrophils # 6.5 K/mcL (1.6-8.9); Nucleated Red Blood Cells 0.3 /100 WBC (0); Platelet Count 215 K/mcL (140-400); Red Blood Count 2.49 M/mcL (4.19-5.50); Red Cell Distribution Width 14.4 % (11.5-14.5); Segmented Neutrophils % 71.2 %
[2016-07-20] MEDS ORDERED: 0.9 % Sodium Chloride 250 ML ONE ×3 (01:09→12:19)
[2016-07-20 01:11] LABS: BUN/Creatinine Ratio 22 (6-26); Blood Urea Nitrogen 20 mg/dL (8-26); Carbon Dioxide 23 mEq/L (19-29); Chloride 102 mEq/L (98-109); Glucose 150 mg/dL (70-99); Osmolality,Calculated 283 (280-300); Potassium 3.7 mEq/L (3.5-4.5); Sodium 134 mEq/L (136-145); eGFR For African Americans > 60 (> 60); eGFR For Non-African Americans > 60 (> 60)
[2016-07-20 05:25] LABS: Hematocrit 24.8 % (37.5-50.1); Hemoglobin 8.3 g/dL (12.9-16.9)
[2016-07-20] MEDS: Pantoprazole 40 MG in 0.9 % Sodium Chloride Mini Bag 100 ML IVC SCH ×3 (06:26→20:04)
[2016-07-20 10:39] LABS: Activated Partial Thrombo Time 175.7 Seconds (26.0-36.0)
[2016-07-20 11:01] LABS: Heparin anti-factor XA UFH 1.34 IU/mL (0.30-0.70)
--- NOTE | 2016-07-20 11:14 | Internal Med Progress Note ---
<Janay Jin - Last Filed: 07/20/16 16:07> Date of Encounter: 07/20/16 Time of Encounter: 10:00 - Assessment and plan (1) Acute blood loss anemia Current Visit: Yes Status: Acute Assessment and plan: Hgb 9.4 on initial presentation and later dropped to as low as 7.6. Secondary to GI bleed given positive stool occult test. Hgb 8.3 this morning s/p one unit of pRBC transfusion. Patient will receive one more pRBC transfusion this morning. Closely monitor H&H. 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 Continue Carafate and switch to Protonix IV BID. Continue to monitor. Qualifiers: GI bleed type/associated pathology: duodenal ulcer Qualified Code(s): K26.4 - Chronic or unspecified duodenal ulcer with hemorrhage (3) LV (left ventricular) mural thrombus Current Visit: Yes Status: Acute Assessment and plan: Echocardiogram on 07/19 showed an apical left ventricular thrombus with LVEF 30% Cardiology recommends initiating patient on anticoagulation. Patient is a high risk for bleeding as he presented with an upper GI bleed with large nonbleeding duodenal ulcers on EGD Continue anticoagulation with heparin drip for now. Appreciate cardiology recommendation regarding anticoagulation choice and duration. (4) COPD (chronic obstructive pulmonary disease) Current Visit: Yes Status: Acute Assessment and plan: Not in exacerbation. Continue DuoNeb. Continue supplemental oxygen. Qualifiers: COPD type: unspecified COPD Qualified Code(s): J44.9 - Chronic obstructive pulmonary disease, unspecified (5) Ischemic cardiomyopathy Current Visit: Yes Status: Acute Assessment and plan: History of ischemic cardiomyopathy with EF of 25%. Patient's previous PCI with 3 vessel coronary artery disease seen on left heart catheter in 2013 patient declined At that time. No sign of volume overload at this time. Elevated troponins on initial presentation, likely demand secondary to acute blood loss anemia from GI bleed. EF improved from previous ECHO. No active CP. Cardiology examined patient's device but show no concerns for arrhythmia. Continue statin and beta alexandra. (6) DVT prophylaxis Current Visit: Yes Status: Acute Assessment and plan: On heparin drip. - Subjective Interval history: Mr. Mejia is currently admitted for GI bleed. Patient is high risk given his Dai's esophagus, gastritis and duodenal ulcers found on EGD but also on anticoagulation for his LV thrombus. No significant event noted overnight. Patient was seen and examined this morning. Patient reports doing okay and has no complaint at this time. Patient had bowel movement last night and reports it's normal color without any blood. Patient denies lightheadedness, syncope, chest pain, shortness of breath, nausea , vomiting. - Constitutional Vitals: Temp Pulse Resp BP Pulse Ox 97.7 F 69 19 117/63 96 07/20/16 07:16 07/20/16 07:16 07/20/16 07:16 07/20/16 07:16 07/20/16 07:16 General appearance: Present: cooperative, pleasant, no acute distress, answers questions appropriately - Head Head exam: Present: atraumatic, normocephalic - Eye Eye exam: Present: EOMI, PERRL, conjuntiva pink, sclera anicteric - Neck Neck exam general surgery: Present: supple, trachea midline. Absent: lymphadenopathy - Respiratory Respiratory exam: Present: CTAB. Absent: accessory muscle use, rales, rhonchi, wheezes - Cardiovascular Cardiovascular exam: Present: RRR, +S1, +S2. Absent: diastolic murmur, gallop, rubs, systolic murmur - GI/Abdominal GI/Abdominal exam: Present: normal bowel sounds, soft, no peritoneal signs. Absent: distended, tenderness - Extremities Exam Extremities exam: Present: warm, radial pulses palpable and symetrical. Absent : calf tenderness, cyanotic, pedal edema - Neurological Exam Neurological exam: Present: CN II-XII intact, no focal deficits. Absent: pronater drift, facial droop, speech deficit - Skin Skin exam: Present: dry, intact, warm Internal Medicine: Result - Labs CBC & Chem 7: 07/20/16 05:15 07/20/16 00:39 Labs: Short CBC 07/19/16 07/19/16 07/20/16 Range/Units 17:32 22:34 00:39 WBC 12.0 H 9.1 (4.3-11.1) K/mcL Hgb 8.8 L 8.6 L 7.6 L (12.9-16.9) g/dL Hct 27.3 L 26.2 L 22.7 L (37.5-50.1) % Plt Count 270 215 (140-400) K/mcL Neutrophils # 6.5 (1.6-8.9) K/mcL 07/20/16 Range/Units 05:15 WBC (4.3-11.1) K/mcL Hgb 8.3 L (12.9-16.9) g/dL Hct 24.8 L (37.5-50.1) % Plt Count (140-400) K/mcL Neutrophils # (1.6-8.9) K/mcL BMP 07/20/16 00:39 Sodium 134 L Potassium 3.7 Chloride 102 Carbon Dioxide 23 BUN 20 Creatinine 0.89 Glucose 150 H Calcium 8.0 L - ABG Interpretation ABG results: PT/INR, D-dimer PT 15.3 Seconds (9.4-12.1) H 07/19/16 17:32 Consult Discharge Plan - Plan [facility]errals: [facility] [Primary Care Provider] - <Jean Maya - Last Filed: 07/21/16 15:07> Date of Encounter: 07/20/16 - Assessment and plan (1) GI bleed Current Visit: Yes Status: Acute Qualifiers: GI bleed type/associated pathology: duodenal ulcer Qualified Code(s): K26.4 - Chronic or unspecified duodenal ulcer with hemorrhage (2) Anemia Current Visit: Yes Status: Acute Assessment and plan: Monitoring H/H. So far has been stable post transfusion. Qualifiers: Anemia type: other cause Other causes of anemia: acute posthemorrhagic Qualified Code(s): D62 - Acute posthemorrhagic anemia (3) LV (left ventricular) mural thrombus Current Visit: Yes Status: Acute (4) Coronary artery disease Current Visit: Yes Status: Chronic Qualifiers: Coronary Disease-Associated Artery/Lesion type: [place] artery [place] vs. transplanted heart: [place] heart Associated angina: without angina Qualified Code(s): I25.10 - Atherosclerotic heart disease of [place] coronary artery without angina pectoris (5) COPD (chronic obstructive pulmonary disease) Current Visit: Yes Status: Chronic Qualifiers: COPD type: unspecified COPD Qualified Code(s): J44.9 - Chronic obstructive pulmonary disease, unspecified (6) Hypertension Current Visit: Yes Status: Chronic Assessment and plan: Monitor BP Qualifiers: Hypertension type: essential hypertension Qualified Code(s): I10 - Essential (primary) hypertension (7) Ischemic cardiomyopathy Current Visit: Yes Status: Chronic (8) Chronic hypoxemic respiratory failure Current Visit: Yes Status: Chronic Assessment and plan: Oxygen supplementation. - Constitutional Vitals: Temp Pulse Resp BP Pulse Ox 97.6 F 79 20 155/81 99 07/21/16 11:11 07/21/16 11:11 07/21/16 11:11 07/21/16 11:11 07/21/16 11:11 Internal Medicine: Result - Labs CBC & Chem 7: 07/21/16 00:50 07/21/16 00:50 Labs: Short CBC 07/20/16 07/21/16 Range/Units 16:33 00:50 WBC 7.9 (4.3-11.1) K/mcL Hgb 9.3 L 8.9 L (12.9-16.9) g/dL Hct 28.1 L 27.4 L (37.5-50.1) % Plt Count 206 (140-400) K/mcL Neutrophils # 5.5 (1.6-8.9) K/mcL BMP 07/21/16 00:50 Sodium 135 L Potassium 3.9 Chloride 103 Carbon Dioxide 26 BUN 13 Creatinine 0.82 Glucose 128 H Calcium 7.7 L - ABG Interpretation ABG results: PT/INR, D-dimer PT 15.3 Seconds (9.4-12.1) H 07/19/16 17:32 - Attending Attestation I examined this patient and my medical decision-making was reviewed with the Resident Physician on 07/20/16. I agree with the documented findings, disposition and treatment plan as described except to the extent set forth below. Mr. Mejia is currently admitted for acute GI and LV mural thrombus. He is high risk due to potential for bleeding while on heparin as well as neurologic compromise. Mr. Mejia feels OK. No CP or SOB. No cough. Tolerating heparin with no further bleeding noted. No fever or chills. Exam Alert. Comfortable Heart reg Lungs diminished by clear No edema I/P 1. GI bleed 2. Anemia 3. LV thrombus Further diagnoses and plan as above.
--- NOTE | 2016-07-20 15:49 | Cardiology Progress Note ---
Date of Encounter: 07/20/16 Time of Encounter: 15:30 Assessment and Plan (1) LV (left ventricular) mural thrombus Current Visit: Yes Status: Acute LV thrombus seen on TTE. Anticoagulation with warfarin is recommended. Unfortunately he presented with possible GI bleed and acute anemia. Seen to have Dai's esophagus, hiatal hernia, and non-bleeding ulcers seen. Bleeding risk is high. Would benefit from finding source of bleeding d/t high risk of not being anticoagulated. Discussed with family (, son); he was recently told he had a LV thrombus at [facility]; at that time he was recommended to go on Coumadin therapy but declined. He is aware of increased risk of CVA. He will consider Coumadin therapy. Continue heparin gtt for now and monitor H/H closely; will likely need colonoscopy prior to full anticoagulation given + occult stool and GI bleed prior to admit. Will continue to follow. (2) Ischemic cardiomyopathy Current Visit: Yes Status: Acute EF 30% on current TTE. TTE showed global systolic dysfunction. Atypical septal motion (LBBB), mild diastolic dysfunction, LV apical thrombus. Normal RV size and structure. [facility] EF 25% with severe global hypokenesis with grade three diastolic dysfunction. Restart toprol XL. Add rossana inhibitor if b/p tolerates. Currently euvolemic on exam. ICD in place. Low sodium diet and daily weights. (3) Elevated troponin Current Visit: Yes Status: Acute Troponin elevated at 0.23, 0.22. Demand ischemia in the setting of acute anemia , GI bleed. TTE shows EF improved from May. He denies chest pain. (4) Coronary artery disease Current Visit: Yes Status: Acute H/o of previous PCI and severe 3 vessel CAD seen on [facility] in 2013. Pt declined CABG at that time. Continue statin and bb. Asa on hold d/t bleeding. Restart when ok from GI standpoint. He declines chest pain. Qualifiers: Coronary Disease-Associated Artery/Lesion type: [place] artery [place] vs. transplanted heart: [place] heart Associated angina: without angina Qualified Code(s): I25.10 - Atherosclerotic heart disease of [place] coronary artery without angina pectoris Discussion w patient/family: The assessment and plan as outlined above was discussed with the patient and/or family members who expressed understanding and agreement. All questions were answered. Thank you for involving us in the care of your patient. Please call with any questions. The patient will be discussed and reviewed with Dr. Francine Diane; changes to be made accordingly. Subjective Principal diagnosis: LV thrombus; GI bleed Interval history: Seen and examined--family present at bedside. Denies recurrent episodes of melena. Denies chest pain or discomfort. Objective Vital Signs, Last 4 Hours Temp Pulse Resp BP Pulse Ox 07/20/16 15:10 98.0 F 78 20 119/58 96 07/20/16 12:43 20 130/67 95 07/20/16 11:50 97.3 F L 61 14 138/69 99 General: Conversant, No Apparent Distress HEENT: Atraumatic, Normocephaly, Mucus Membranes Moist Cardiac: Reg Rate and Rhythm, Normal S1 and S2 Lungs: Normal Breath Sounds Neuro: Alert and responsive Abdomen: Soft Skin: No rashes noted on visualized skin Musculoskeletal: No Chest Wall Tenderness Extremities: No Edema, Normal Pulses Results 07/20/16 05:15 07/20/16 00:39 Lab Results 07/19/16 07/19/16 07/19/16 17:32 17:32 22:34 WBC 12.0 H Hgb 8.8 L 8.6 L Hct 27.3 L 26.2 L Plt Count 270 INR 1.4 APTT 22.0 L Sodium Potassium Chloride Carbon Dioxide BUN Creatinine Glucose Calcium 07/20/16 07/20/16 07/20/16 00:39 00:39 00:39 WBC 9.1 Hgb 7.6 L Hct 22.7 L Plt Count 215 INR APTT 48.6 H D Sodium 134 L Potassium 3.7 Chloride 102 Carbon Dioxide 23 BUN 20 Creatinine 0.89 Glucose 150 H Calcium 8.0 L 07/20/16 07/20/16 05:15 09:42 WBC Hgb 8.3 L Hct 24.8 L Plt Count INR APTT 175.7 H* D Sodium Potassium Chloride Carbon Dioxide BUN Creatinine Glucose Calcium Active Medications Albuterol/Ipratropium (Duoneb) 3 ml IH [id number] PRN; Protocol PRN Reason: Shortness Of Breath/Wheezing Stop: 01/17/17 21:09 Last Admin: 07/20/16 05:05 Dose: 3 ml Duloxetine HCl (Cymbalta) 30 mg PO DAILY [facility] Stop: 01/18/17 09:01 Last Admin: 07/20/16 11:00 Dose: 30 mg Heparin Sodium (Porcine) (Heparin) 5,300 unit 70 unit/kg (5300 unit) IVP Q6HR PRN PRN Reason: SEE COMMENTS Stop: 01/18/17 17:16 Last Admin: 07/20/16 01:47 Dose: 4,500 unit Heparin Sodium (Porcine) (Heparin) 2,700 unit 35 unit/kg (2700 unit) IVP Q6H PRN PRN Reason: SEE COMMENTS Stop: 01/18/17 17:16 Heparin Sodium/Dextrose (Heparin 25,000 Unit/500 Ml D5w) 25,000 unit in 500 mls @ 21.336 mls/hr IVC .[id number] RASHMI; 14 UNIT/KG/HR PRN Reason: Protocol Stop: 01/18/17 17:16 Last Titration: 07/20/16 12:15 Dose: 12.9 unit/kg/hr, 19.66 mls/hr Naloxone HCl (Narcan) 0.4 mg IVP Q2MIN PRN PRN Reason: Opioid Reversal Stop: 01/17/17 21:04 Pantoprazole Sodium (Protonix) 40 mg IVP Q12HR [facility] Stop: 01/19/17 18:01 Potassium Chloride (Potassium Chloride) 20 meq PO DAILY [facility] Stop: 01/18/17 09:01 Last Admin: 07/20/16 11:00 Dose: 20 meq Simvastatin (Zocor) 40 mg PO HS RASHMI PRN Reason: Protocol Stop: 01/18/17 21:01 Last Admin: 07/19/16 22:28 Dose: 40 mg Sucralfate (Carafate) 1 gm GTUBE QIDAC [facility] Stop: 01/18/17 11:31 Last Admin: 07/20/16 11:00 Dose: 1 gm Terazosin HCl (Hytrin) 2 mg PO HS [facility] Stop: 01/18/17 21:01 Last Admin: 07/19/16 22:28 Dose: 2 mg - Imaging and Cardiology Echo: report reviewed - EKG Interpretation EKG results cardiology: personally reviewed Consult Discharge Plan - Plan [facility]errals: [facility] [Primary Care Provider] -
[2016-07-20] MEDS: Pantoprazole 40 MG VIAL IVP SCH (16:38)
[2016-07-20 17:10] LABS: Hematocrit 28.1 % (37.5-50.1); Hemoglobin 9.3 g/dL (12.9-16.9)
[2016-07-20] MEDS: Heparin 25,000 UNIT/500 ML D5W 25,000 UNIT/500 ML MLS IVC SCH (19:06)
[2016-07-21 01:01] LABS: Basophils % 0.3 %; Eosinophils # 0.1 K/mcL (0.0-0.6); Eosinophils % 1.3 %; Hematocrit 27.4 % (37.5-50.1); Hemoglobin 8.9 g/dL (12.9-16.9); Immature Granulocytes % 1.5 % (0-4); Immature Platelets 5.5 % (1.1-6.1); Lymphocytes # 1.3 K/mcL (0.6-4.6); Lymphocytes % 16.7 %; Mean Corpuscular HGB Conc 32.5 g/dL (31.6-35.5); Mean Corpuscular Hemoglobin 29.1 pg (28.0-33.3); Mean Corpuscular Volume 89.5 fL (83.0-100.0); Mean Platelet Volume 10.4 fL (9.4-12.4); Monocytes # 0.8 K/mcL (0.0-1.3); Monocytes % 10.6 %; Neutrophils # 5.5 K/mcL (1.6-8.9); Platelet Count 206 K/mcL (140-400); Red Blood Count 3.06 M/mcL (4.19-5.50); Red Cell Distribution Width 16.2 % (11.5-14.5); Segmented Neutrophils % 69.6 %
[2016-07-21 01:12] LABS: BUN/Creatinine Ratio 16 (6-26); Blood Urea Nitrogen 13 mg/dL (8-26); Calcium 7.7 mg/dL (8.6-10.8); Carbon Dioxide 26 mEq/L (19-29); Chloride 103 mEq/L (98-109); Glucose 128 mg/dL (70-99); Osmolality,Calculated 282 (280-300); Potassium 3.9 mEq/L (3.5-4.5); Sodium 135 mEq/L (136-145); eGFR For African Americans > 60 (> 60); eGFR For Non-African Americans > 60 (> 60)
[2016-07-21] MEDS: Pantoprazole 40 MG VIAL IVP SCH ×2 (05:26→17:34)
--- NOTE | 2016-07-21 10:47 | Internal Med Progress Note ---
<Janay Jin - Last Filed: 07/21/16 14:37> Date of Encounter: 07/21/16 Time of Encounter: 09:45 - Assessment and plan (1) Acute blood loss anemia Current Visit: Yes Status: Acute Assessment and plan: Hgb 9.4 on initial presentation and later dropped to as low as 7.6. Secondary to GI bleed given positive stool occult test. S/p 2 unit of pRBC transfusion. Relatively stable as Hgb 8.9 this morning compared to 9.3 yesterday. Continue to monitor H&H closely. 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 Patient reports no hematochezia or melena. Continue Carafate and Protonix IV BID. Continue to monitor. Qualifiers: GI bleed type/associated pathology: duodenal ulcer Qualified Code(s): K26.4 - Chronic or unspecified duodenal ulcer with hemorrhage (3) LV (left ventricular) mural thrombus Current Visit: Yes Status: Acute Assessment and plan: Echocardiogram on 07/19 showed an apical left ventricular thrombus with LVEF 30% Cardiology recommends initiating patient on anticoagulation. Patient is a high risk for bleeding as he presented with an upper GI bleed with large nonbleeding duodenal ulcers on EGD Case was discussed with cardiology. Given patient's H&H reamains stable and no reported hematochezia or melena, okay to start Coumadin. Continue heparin drip. Will start Coumadin 5 mg PO daily tonight. Continue to monitor PT, PTT and INR. INR goal is between 2.0 and 3.0 Patient is recommended to follow up closely with [facility] [place]. (4) COPD (chronic obstructive pulmonary disease) Current Visit: Yes Status: Acute Assessment and plan: Not in exacerbation. Continue DuoNeb. Continue supplemental oxygen. Qualifiers: COPD type: unspecified COPD Qualified Code(s): J44.9 - Chronic obstructive pulmonary disease, unspecified (5) Ischemic cardiomyopathy Current Visit: Yes Status: Acute Assessment and plan: History of ischemic cardiomyopathy with EF of 25%. Patient's previous PCI with 3 vessel coronary artery disease seen on left heart catheter in 2013 patient declined At that time. No sign of volume overload at this time. Elevated troponins on initial presentation, likely demand secondary to acute blood loss anemia from GI bleed. EF improved from previous ECHO. No active CP. Cardiology examined patient's device but show no concerns for arrhythmia. Continue statin and beta alexandra. (6) DVT prophylaxis Current Visit: Yes Status: Acute Assessment and plan: On heparin drip. - Subjective Interval history: No significant event noted overnight. Patient was seen and examined this morning. Patient reports doing well and has no complaint. Patient reports having bowel movement last night and it's normal color without any blood. Patient denies lightheadedness, syncope, chest pain, shortness of breath, nausea , vomiting, fever. - Constitutional Vitals: Temp Pulse Resp BP Pulse Ox 97.9 F 71 18 115/69 97 07/21/16 06:59 07/21/16 06:59 07/21/16 06:59 07/21/16 06:59 07/21/16 06:59 General appearance: Present: cooperative, A&O X 2 (Person and place), pleasant, no acute distress, answers questions appropriately - Head Head exam: Present: atraumatic, normocephalic - Eye Eye exam: Present: EOMI, PERRL, conjuntiva pink, sclera anicteric - Neck Neck exam general surgery: Present: supple, trachea midline. Absent: lymphadenopathy - Respiratory Respiratory exam: Present: CTAB. Absent: accessory muscle use, rales, rhonchi, wheezes - Cardiovascular Cardiovascular exam: Present: RRR, +S1, +S2. Absent: diastolic murmur, gallop, rubs, systolic murmur - GI/Abdominal GI/Abdominal exam: Present: normal bowel sounds, soft, no peritoneal signs. Absent: distended, tenderness - Extremities Exam Extremities exam: Present: warm, radial pulses palpable and symetrical. Absent : calf tenderness, cyanotic, pedal edema - Neurological Exam Neurological exam: Present: CN II-XII intact, oriented X3, no focal deficits. Absent: pronater drift, facial droop, speech deficit - Skin Skin exam: Present: dry, intact, warm Internal Medicine: Result - Labs CBC & Chem 7: 07/21/16 00:50 07/21/16 00:50 Labs: Short CBC 07/20/16 07/21/16 Range/Units 16:33 00:50 WBC 7.9 (4.3-11.1) K/mcL Hgb 9.3 L 8.9 L (12.9-16.9) g/dL Hct 28.1 L 27.4 L (37.5-50.1) % Plt Count 206 (140-400) K/mcL Neutrophils # 5.5 (1.6-8.9) K/mcL BMP 07/21/16 00:50 Sodium 135 L Potassium 3.9 Chloride 103 Carbon Dioxide 26 BUN 13 Creatinine 0.82 Glucose 128 H Calcium 7.7 L - ABG Interpretation ABG results: PT/INR, D-dimer PT 15.3 Seconds (9.4-12.1) H 07/19/16 17:32 - VTE Documentation of Mechanical Device: Intermittent pneumatic compression device Consult Discharge Plan - Plan [facility]errals: [facility]Primary Care Provider[facility] - <Jean Maya - Last Filed: 07/21/16 15:19> Date of Encounter: 07/21/16 - Assessment and plan (1) GI bleed Current Visit: Yes Status: Acute Qualifiers: GI bleed type/associated pathology: duodenal ulcer Qualified Code(s): K26.4 - Chronic or unspecified duodenal ulcer with hemorrhage (2) Anemia Current Visit: Yes Status: Acute Qualifiers: Anemia type: other cause Other causes of anemia: acute posthemorrhagic Qualified Code(s): D62 - Acute posthemorrhagic anemia (3) LV (left ventricular) mural thrombus Current Visit: Yes Status: Acute (4) Coronary artery disease Current Visit: Yes Status: Chronic Qualifiers: Coronary Disease-Associated Artery/Lesion type: [place] artery [place] vs. transplanted heart: [place] heart Associated angina: without angina Qualified Code(s): I25.10 - Atherosclerotic heart disease of [place] coronary artery without angina pectoris (5) COPD (chronic obstructive pulmonary disease) Current Visit: Yes Status: Chronic Qualifiers: COPD type: unspecified COPD Qualified Code(s): J44.9 - Chronic obstructive pulmonary disease, unspecified (6) Hypertension Current Visit: Yes Status: Chronic Qualifiers: Hypertension type: essential hypertension Qualified Code(s): I10 - Essential (primary) hypertension (7) Ischemic cardiomyopathy Current Visit: Yes Status: Chronic (8) Chronic hypoxemic respiratory failure Current Visit: Yes Status: Chronic - Constitutional Vitals: Temp Pulse Resp BP Pulse Ox 97.6 F 79 20 155/81 99 05/14/17 11:11 07/21/16 11:11 07/21/16 11:11 07/21/16 11:11 07/21/16 11:11 Internal Medicine: Result - Labs CBC & Chem 7: 07/21/16 00:50 07/21/16 00:50 Labs: Short CBC 07/20/16 07/21/16 Range/Units 16:33 00:50 WBC 7.9 (4.3-11.1) K/mcL Hgb 9.3 L 8.9 L (12.9-16.9) g/dL Hct 28.1 L 27.4 L (37.5-50.1) % Plt Count 206 (140-400) K/mcL Neutrophils # 5.5 (1.6-8.9) K/mcL BMP 07/21/16 00:50 Sodium 135 L Potassium 3.9 Chloride 103 Carbon Dioxide 26 BUN 13 Creatinine 0.82 Glucose 128 H Calcium 7.7 L - ABG Interpretation ABG results: PT/INR, D-dimer PT 15.3 Seconds (9.4-12.1) H 07/19/16 17:32 - Attending Attestation I examined this patient and my medical decision-making was reviewed with the Resident Physician on 07/21/16. I agree with the documented findings, disposition and treatment plan as described except to the extent set forth below. Mr. Mejia is currently admitted for acute GI bleed, anemia and LV thrombus. He remains high risk due to potential for worsening cardiac status and bleeding. Mr. Mejia is feeling OK. He is up and about in room. No pain. No fever or chills. Tolerating heparin. Willing to go on coumadin for this clot. Exam Alert. Comfortable Heart reg Lungs diminished but clear Abd soft No edema I/P 1. GI bleed 2. Anemia 3. LV thrombus Further diagnoses and plan as above
--- NOTE | 2016-07-21 11:03 | Cardiology Progress Note ---
Date of Encounter: 07/21/16 Time of Encounter: 10:30 Assessment and Plan (1) LV (left ventricular) mural thrombus Current Visit: Yes Status: Acute LV thrombus seen on TTE. Anticoagulation with warfarin is recommended. Unfortunately he presented with possible GI bleed and acute anemia. Seen to have Dai's esophagus, hiatal hernia, and non-bleeding ulcers seen. Bleeding risk is high. Would benefit from finding source of bleeding d/t high risk of not being anticoagulated. Discussed with family (, son); he was recently told he had a LV thrombus at [facility]; at that time he was recommended to go on Coumadin therapy but declined. He is aware of increased risk of CVA. H/H have remained stable after 48 hours of IV heparin gtt, denies recurrent melena or hematochezia. Discussed with primary team, plan to start Coumadin tonight, he will be sent home with home health care to facilitate INR draws and follow with the [place]. Patient is agreeable. Goal INR 2-3. Recommend close outpatient follow-up with [facility] ([place]). Cardiology will sign-off. (2) Ischemic cardiomyopathy Current Visit: Yes Status: Acute EF 30% on current TTE. TTE showed global systolic dysfunction. Atypical septal motion (LBBB), mild diastolic dysfunction, LV apical thrombus. Normal RV size and structure. TTE completed through the [facility] 05/16/16- EF 25% with severe global hypokenesis with grade three diastolic dysfunction. Restart toprol XL. Add rossana inhibitor if b/p tolerates. Currently euvolemic on exam. ICD in place. Low sodium diet and daily weights. (3) Elevated troponin Current Visit: Yes Status: Acute Troponin elevated at 0.23, 0.22. Demand ischemia in the setting of acute anemia , GI bleed. TTE shows EF improved from May. He denies chest pain. (4) Coronary artery disease Current Visit: Yes Status: Acute H/o of previous PCI and severe 3 vessel CAD seen on [facility] in 2013. Pt declined CABG at that time. Continue statin and bb. Asa on hold d/t bleeding. Restart when ok from GI standpoint. He declines chest pain. Qualifiers: Coronary Disease-Associated Artery/Lesion type: [place] artery [place] vs. transplanted heart: [place] heart Associated angina: without angina Qualified Code(s): I25.10 - Atherosclerotic heart disease of [place] coronary artery without angina pectoris Discussion w patient/family: The assessment and plan as outlined above was discussed with the patient and/or family members who expressed understanding and agreement. All questions were answered. Thank you for involving us in the care of your patient. Please call with any questions. The patient was discussed and reviewed with Dr. Pavan Diane; Cardiology will sign-off, please call with questions. Subjective Principal diagnosis: LV thrombus; GI bleed Interval history: Seen and examined. Denies recurrent episodes of melena or hematochezia. Denies chest pain or discomfort. Objective General: Conversant, No Apparent Distress HEENT: Atraumatic, Normocephaly, Mucus Membranes Moist Cardiac: Reg Rate and Rhythm, Normal S1 and S2 Lungs: Normal Breath Sounds Neuro: Alert and responsive Abdomen: Soft Skin: No rashes noted on visualized skin Musculoskeletal: No Chest Wall Tenderness Extremities: No Edema, Normal Pulses Results 07/21/16 00:50 07/21/16 00:50 Lab Results 07/20/16 07/20/16 07/21/16 16:33 18:18 00:50 WBC 7.9 Hgb 9.3 L 8.9 L Hct 28.1 L 27.4 L Plt Count 206 APTT 75.5 H D Sodium Potassium Chloride Carbon Dioxide BUN Creatinine Glucose Calcium 07/21/16 07/21/16 07/21/16 00:50 00:50 07:50 WBC Hgb Hct Plt Count APTT 85.8 H 97.2 H Sodium 135 L Potassium 3.9 Chloride 103 Carbon Dioxide 26 BUN 13 Creatinine 0.82 Glucose 128 H Calcium 7.7 L Active Medications Albuterol/Ipratropium (Duoneb) 3 ml IH [id number] PRN; Protocol PRN Reason: Shortness Of Breath/Wheezing Stop: 01/17/17 21:09 Last Admin: 07/20/16 05:05 Dose: 3 ml Duloxetine HCl (Cymbalta) 30 mg PO DAILY [facility] Stop: 01/18/17 09:01 Last Admin: 07/21/16 07:34 Dose: 30 mg Heparin Sodium (Porcine) (Heparin) 5,300 unit 70 unit/kg (5300 unit) IVP Q6HR PRN PRN Reason: SEE COMMENTS Stop: 01/18/17 17:16 Last Admin: 07/20/16 01:47 Dose: 4,500 unit Heparin Sodium (Porcine) (Heparin) 2,700 unit 35 unit/kg (2700 unit) IVP Q6H PRN PRN Reason: SEE COMMENTS Stop: 01/18/17 17:16 Heparin Sodium/Dextrose (Heparin 25,000 Unit/500 Ml D5w) 25,000 unit in 500 mls @ 21.336 mls/hr IVC .[id number] RASHMI; 14 UNIT/KG/HR PRN Reason: Protocol Stop: 01/18/17 17:16 Last Titration: 07/21/16 09:24 Dose: 10.89 unit/kg/hr, 16.6 mls/hr Naloxone HCl (Narcan) 0.4 mg IVP Q2MIN PRN PRN Reason: Opioid Reversal Stop: 01/17/17 21:04 Pantoprazole Sodium (Protonix) 40 mg IVP Q12HR RASHMI Stop: 01/19/17 18:01 Last Admin: 07/21/16 05:26 Dose: 40 mg Potassium Chloride (Potassium Chloride) 20 meq PO DAILY RASHMI Stop: 01/18/17 09:01 Last Admin: 07/21/16 07:34 Dose: 20 meq Simvastatin (Zocor) 40 mg PO HS RASHMI PRN Reason: Protocol Stop: 01/18/17 21:01 Last Admin: 07/20/16 21:40 Dose: 40 mg Sucralfate (Carafate) 1 gm PO QIDAC [facility] Stop: 01/20/17 11:31 Terazosin HCl (Hytrin) 2 mg PO HS RASHMI Stop: 01/18/17 21:01 Last Admin: 07/20/16 21:40 Dose: 2 mg - Imaging and Cardiology Echo: report reviewed Other Results: 12 hour tele: avg HR=69 SR. - EKG Interpretation EKG results cardiology: personally reviewed - VTE Documentation of Mechanical Device: Intermittent pneumatic compression device Consult Discharge Plan - Plan [facility]errals: [facility] [Primary Care Provider] -
[2016-07-21] MEDS: Sucralfate 1 GM TABLET PO SCH ×3 (11:43→22:05)
[2016-07-21] MEDS ORDERED: *HR* Warfarin 5 MG TABLET PO ONE (18:00)
[2016-07-21] MEDS ORDERED: *HR* OxyCODONE Immed Rel 5 MG TABLET PO PRN (21:56)
[2016-07-21] MEDS: Heparin 25,000 UNIT/500 ML D5W 25,000 UNIT/500 ML MLS IVC SCH (22:09)
[2016-07-22 04:29] LABS: Basophils % 0.4 %; Eosinophils # 0.1 K/mcL (0.0-0.6); Eosinophils % 1.4 %; Hematocrit 30.1 % (37.5-50.1); Hemoglobin 9.7 g/dL (12.9-16.9); Lymphocytes # 1.4 K/mcL (0.6-4.6); Lymphocytes % 17.1 %; Mean Corpuscular HGB Conc 32.2 g/dL (31.6-35.5); Mean Corpuscular Hemoglobin 29.1 pg (28.0-33.3); Mean Corpuscular Volume 90.4 fL (83.0-100.0); Mean Platelet Volume 10.5 fL (9.4-12.4); Monocytes # 0.8 K/mcL (0.0-1.3); Monocytes % 10.2 %; Neutrophils # 5.5 K/mcL (1.6-8.9); Platelet Count 228 K/mcL (140-400); Red Blood Count 3.33 M/mcL (4.19-5.50); Red Cell Distribution Width 15.7 % (11.5-14.5); Segmented Neutrophils % 68.9 %
[2016-07-22 04:39] LABS: INR 1.2; Prothrombin Time 12.6 Seconds (9.4-12.1)
[2016-07-22 04:41] LABS: BUN/Creatinine Ratio 10 (6-26); Blood Urea Nitrogen 8 mg/dL (8-26); Calcium 7.9 mg/dL (8.6-10.8); Carbon Dioxide 25 mEq/L (19-29); Chloride 103 mEq/L (98-109); Glucose 139 mg/dL (70-99); Osmolality,Calculated 279 (280-300); Potassium 3.8 mEq/L (3.5-4.5); Sodium 134 mEq/L (136-145); eGFR For African Americans > 60 (> 60); eGFR For Non-African Americans > 60 (> 60)
[2016-07-22 04:42] LABS: Activated Partial Thrombo Time 81.6 Seconds (26.0-36.0)
[2016-07-22] MEDS: Pantoprazole 40 MG VIAL IVP SCH ×2 (05:28→16:23)
[2016-07-22] MEDS: Sucralfate 1 GM TABLET PO SCH ×2 (09:16→16:23)
--- NOTE | 2016-07-22 13:22 | Internal Med Progress Note ---
<Edy Hines - Last Filed: 07/22/16 14:12> Date of Encounter: 07/22/16 Time of Encounter: 13:20 - Assessment and plan (1) LV (left ventricular) mural thrombus Current Visit: Yes Status: Acute Assessment and plan: Echocardiogram on 07/19 showed an apical left ventricular thrombus with LVEF 30% Cardiology recommends initiating patient on anticoagulation. Patient is a high risk for bleeding as he presented with an upper GI bleed with large nonbleeding duodenal ulcers on EGD Case was discussed with cardiology. Given patient's H&H reamains stable and no reported hematochezia or melena, okay to start Coumadin. Continue heparin drip. Patient started on Coumadin. INR 1.2. [facility] as patient is not able to give himself Lovenox injections due to his dementia. Patient is not able to manage his own medications. He will require daily PT/INR, and daily lovenox injections. Patient does not have family that can help him with this. Goal is to have INR between 2-3 before lovenox can be d/c. He will need [place] home health for weekly PT/INR after being therapeutic. (2) Ischemic cardiomyopathy Current Visit: Yes Status: Chronic Assessment and plan: History of ischemic cardiomyopathy with EF of 25%. Patient's previous PCI with 3 vessel coronary artery disease seen on left heart catheter in 2013 patient declined At that time. No sign of volume overload at this time. Elevated troponins on initial presentation, likely demand secondary to acute blood loss anemia from GI bleed. EF improved from previous ECHO. No active CP. Cardiology examined patient's device but show no concerns for arrhythmia. Continue statin and beta alexandra. 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 Patient reports no hematochezia or melena. Continue Carafate and Protonix IV BID. Patient's hemoglobin has increased from admission to 9.4. Qualifiers: GI bleed type/associated pathology: duodenal ulcer Qualified Code(s): K26.4 - Chronic or unspecified duodenal ulcer with hemorrhage (4) Pneumonia Current Visit: Yes Status: Resolved Assessment and plan: Patient was in [facility] with septic shock secondary to continue current pneumonia. He was treated with Rocephin and Zithromax. Chest x-ray shows left lower lobe opacity. This seems to be residual from previous pneumonia. There is no clinical indication the patient has pneumonia. He is not hypoxic, do, tachycardic. afebrile. WBC is within normal limits. Lactic acid is 1.9. Lung exam shows diffuse wheezing. We will continue DuoNeb. Qualifiers: Pneumonia type: due to unspecified organism Laterality: unspecified laterality Lung location: unspecified part of lung Qualified Code(s): J18.9 - Pneumonia, unspecified organism (5) COPD (chronic obstructive pulmonary disease) Current Visit: Yes Status: Chronic Assessment and plan: Not in exacerbation. Continue DuoNeb. Continue supplemental oxygen. Qualifiers: COPD type: unspecified COPD Qualified Code(s): J44.9 - Chronic obstructive pulmonary disease, unspecified (6) DVT prophylaxis Current Visit: Yes Status: Acute Assessment and plan: On heparin drip. And being bridged with Coumadin. - Subjective Interval history: Patient reports no shortness of breath, dizziness, chest pain, palpitations, difficulty ambulating. No acute overnight events. - Constitutional Vitals: Temp Pulse Resp BP Pulse Ox 97.5 F L 64 18 142/93 100 07/22/16 11:00 07/22/16 11:00 07/22/16 11:00 07/22/16 11:00 07/22/16 11:00 General appearance: Present: cooperative, A&O X 2, pleasant, no acute distress, answers questions appropriately - Respiratory Respiratory exam: Present: wheezes (Diffuse bilaterally). Absent: accessory muscle use, rales, rhonchi - Cardiovascular Cardiovascular exam: Present: RRR, +S1, +S2. Absent: diastolic murmur, gallop, rubs, systolic murmur - GI/Abdominal GI/Abdominal exam: Present: normal bowel sounds, soft, no peritoneal signs. Absent: distended, tenderness - Extremities Exam Extremities exam: Present: warm, radial pulses palpable and symetrical. Absent : calf tenderness, cyanotic, pedal edema Internal Medicine: Result - Labs CBC & Chem 7: 07/22/16 04:11 07/22/16 04:11 Labs: Short CBC 07/22/16 Range/Units 04:11 WBC 8.0 (4.3-11.1) K/mcL Hgb 9.7 L (12.9-16.9) g/dL Hct 30.1 L (37.5-50.1) % Plt Count 228 (140-400) K/mcL Neutrophils # 5.5 (1.6-8.9) K/mcL BMP 07/22/16 04:11 Sodium 134 L Potassium 3.8 Chloride 103 Carbon Dioxide 25 BUN 8 Creatinine 0.78 Glucose 139 H Calcium 7.9 L - ABG Interpretation ABG results: PT/INR, D-dimer PT 12.6 Seconds (9.4-12.1) H 07/22/16 04:11 - VTE Documentation of Mechanical Device: Intermittent pneumatic compression device Consult Discharge Plan - Plan [facility]errals: [facility] [Primary Care Provider] - <Jean Maya - Last Filed: 07/22/16 15:18> Date of Encounter: 07/22/16 - Assessment and plan (1) GI bleed Current Visit: Yes Status: Resolved Qualifiers: GI bleed type/associated pathology: duodenal ulcer Qualified Code(s): K26.4 - Chronic or unspecified duodenal ulcer with hemorrhage (2) Anemia Current Visit: Yes Status: Acute Qualifiers: Anemia type: other cause Other causes of anemia: acute posthemorrhagic Qualified Code(s): D62 - Acute posthemorrhagic anemia (3) LV (left ventricular) mural thrombus Current Visit: Yes Status: Acute (4) Coronary artery disease Current Visit: Yes Status: Chronic Qualifiers: Coronary Disease-Associated Artery/Lesion type: [place] artery [place] vs. transplanted heart: [place] heart Associated angina: without angina Qualified Code(s): I25.10 - Atherosclerotic heart disease of [place] coronary artery without angina pectoris (5) COPD (chronic obstructive pulmonary disease) Current Visit: Yes Status: Chronic Qualifiers: COPD type: unspecified COPD Qualified Code(s): J44.9 - Chronic obstructive pulmonary disease, unspecified (6) Hypertension Current Visit: Yes Status: Chronic Qualifiers: Hypertension type: essential hypertension Qualified Code(s): I10 - Essential (primary) hypertension (7) Ischemic cardiomyopathy Current Visit: Yes Status: Chronic (8) Chronic hypoxemic respiratory failure Current Visit: Yes Status: Chronic - Constitutional Vitals: Temp Pulse Resp BP Pulse Ox 97.5 F L 64 18 142/93 100 07/22/16 11:00 07/22/16 11:00 07/22/16 11:00 07/22/16 11:00 07/22/16 11:00 Internal Medicine: Result - Labs CBC & Chem 7: 07/22/16 04:11 07/22/16 04:11 Labs: Short CBC 07/22/16 Range/Units 04:11 WBC 8.0 (4.3-11.1) K/mcL Hgb 9.7 L (12.9-16.9) g/dL Hct 30.1 L (37.5-50.1) % Plt Count 228 (140-400) K/mcL Neutrophils # 5.5 (1.6-8.9) K/mcL BMP 07/22/16 04:11 Sodium 134 L Potassium 3.8 Chloride 103 Carbon Dioxide 25 BUN 8 Creatinine 0.78 Glucose 139 H Calcium 7.9 L - ABG Interpretation ABG results: PT/INR, D-dimer PT 12.6 Seconds (9.4-12.1) H 07/22/16 04:11 - Attending Attestation I examined this patient and my medical decision-making was reviewed with the Resident Physician on 07/22/16. I agree with the documented findings, disposition and treatment plan as described except to the extent set forth below. Mr. Mejia is currently admitted for acute GI bleed, blood loss anemia and LV mural thrombus. He is high risk due to potential for bleeding on heparin and risk of stroke. Mr. Mejia says he feels OK. Denies any bleeding (but had some blood on a handkerchief). No CP or SOB. Started coumadin yesterday. No fever or chills. Exam alert. Comfortable Heart reg Diffuse end exp wheeze noted. I/P 1. Acute blood loss anemia - stable after transfusion 2. Acute GI bleed 3. LV mural thrombus Pt could be managed with Lovenox/coumadin. I do not feel he could be managed at home right now until he is only on the coumadin. He needs assistance with management of current medication regimen. He lives with his and is a distance from a hospital.
[2016-07-22] MEDS ORDERED: Metoprolol XL (24 HR) Succ 50 MG TAB.ER.24H PO SCH (13:30)
[2016-07-22 15:12] VITALS: BP 129/84
--- NOTE | 2016-07-22 16:20 | Discharge Summary ---
<Edy Hines - Last Filed: 07/22/16 16:30> Date of Encounter: 07/22/16 Time of Encounter: 16:15 - Discharge Diagnosis (1) GI bleed Priority: Primary Status: Resolved Qualifiers: GI bleed type/associated pathology: duodenal ulcer Qualified Code(s): K26.4 - Chronic or unspecified duodenal ulcer with hemorrhage (2) LV (left ventricular) mural thrombus Priority: Secondary Status: Acute (3) Ischemic cardiomyopathy Priority: Secondary Status: Chronic (4) Pneumonia Priority: Secondary Status: Resolved Qualifiers: Pneumonia type: due to unspecified organism Laterality: unspecified laterality Lung location: unspecified part of lung Qualified Code(s): J18.9 - Pneumonia, unspecified organism (5) COPD (chronic obstructive pulmonary disease) Priority: Secondary Status: Chronic Qualifiers: COPD type: unspecified COPD Qualified Code(s): J44.9 - Chronic obstructive pulmonary disease, unspecified (6) DVT prophylaxis Priority: Secondary Status: Acute - Discharge Medications Prescriptions: Pantoprazole Sodium 40 mg PO DAILY #30 tablet.dr Home Medications: Albuterol Neb [Proventil Neb] 2.5 mg IH QID PRN 07/18/16 [History] Aspirin Enteric Coated [Aspirin EC] 81 mg PO DAILY 07/18/16 [History] Calcium Carbonate/Vitamin D3 [Calcium 500-Vit D3 200 Tablet] 1 each PO TID 07/18 [History] Capsaicin [Arthritis Pain Relief] 1 appl TP BID PRN 07/18/16 [History] DULoxetine [Cymbalta] 30 mg PO DAILY 07/18/16 [History] Docusate [Colace] 100 mg PO BID 07/18/16 [History] Finasteride [Proscar] 5 mg PO DAILY 07/18/16 [History] Furosemide [Lasix] 40 mg PO QPM 07/18/16 [History] Furosemide [Lasix] 60 mg PO QAM 07/18/16 [History] Gabapentin [Neurontin] 800 mg PO BID 07/18/16 [History] Metoprolol XL (24 HR) Succ [Toprol Xl] 50 mg PO DAILY 07/18/16 [History] Moxifloxacin OPTH Drops [Vigamox] 1 drop OP QID 07/18/16 [History] OxyCODONE Immed Rel [Roxicodone 5 MG] 10 mg PO BID 07/18/16 [History] Polyethylene Glycol 3350 [Smoothlax] 17 gm PO DAILY 07/18/16 [History] Potassium Chloride [K-Tab ER] 20 meq PO DAILY 07/18/16 [History] PrednisoLONE Acetate 1% Opth [PredFORTE 1%] 1 drop OP AD 07/18/16 [History] Sennosides [Senna] 8.6 mg PO BID 07/18/16 [History] Simvastatin [Zocor] 40 mg PO HS 07/18/16 [History] Spironolactone [Aldactone] 25 mg PO DAILY 07/18/16 [History] Terazosin HCl 2 mg PO HS 07/18/16 [History] Tiotropium [Spiriva] 18 mcg IH 0700 07/18/16 [History] Enoxaparin [Lovenox *PHARMACY WT BASED*] 80 mg SQ Q12HR mg 07/22/16 [Rx] Pantoprazole Sodium 40 mg PO DAILY #30 tablet. 07/22/16 [Rx] Sucralfate [Carafate] 1 gm PO QIDAC #120 tablet 07/22/16 [Rx] Warfarin perPT [Coumadin perPT] 1 each PO DAILY@1800 PRN #0 each 07/22/16 [Rx] Allergies/Adverse Reactions: Allergies No Known Allergies Allergy (Verified 07/18/16 16:07) Date of admission: 07/18/16 18:40 [facility] Consults: 07/19/16 06:00 Consult to Gastroenterology [CONS] Routine Consulting Provider: Gastroenterology Nadia Reason for Consult: GI Bleed Call Completed: Yes 07/19/16 16:28 Consult to Cardiology [CONS] Routine Comment: Consulting Provider: Cardiology Nadia Reason for Consult: LV thrombus Call Completed: Yes Discharging clinician: Edy Hines Anticipated date of discharge: 07/22/16 - Patient Status Disposition: Transfer Short-Term Hosp Condition: Good Functional capacity at discharge: independent ambulation Overall status at discharge: patient is back to baseline - Discharge Instructions Follow Up With: [facility] [Primary Care Provider] - Additional Instructions: Please present to ER if you have signs of bleeding including bloddy vomiting, bloody bowel movement, bloody sputum. Please present to ER after head injury, falls. Please follow up with vacuum technician within one week. - Diet and Activity Activity: increase activity as tolerated Diet: low fat, low cholesterol, low salt diet Interval History: 80-year-old male who presents from the [place]. Patient has had a history of blood in his stool for a month. Patient left AMA from [facility] after being treated for septic shock and coming equine pneumonia. He was on Levophed. Was found to have left lower lobe pneumonia. Treated with Zithromax and ceftriaxone. During that admission patient's hemoglobin was 12. Yesterday he was found to have a hemoglobin of 9.4. GI was consult and patient underwent EGD which showed Dai's esophagus, hiatal hernia, gastritis and multiple nonbleeding duodenal ulcers with no stigmata of bleeding. Patient was started on a PPI drip and Carafate and soft diet. He was then transitioned to protnoix BID. Patient has a history of ischemic cardiomyopathy with EF of 25%. He had echo in May at [facility] showing severe global hypokinesis of the left ventricle. Patient has AICD/ventricular pacemaker. He presented with an elevated troponin of 1.23, 0.27, 0.22.EKG showed sinus rhythym with LBBB. Patient is on aspirin, Plavix, beta alexandra, Lasix, simvastatin outpatient. Aspirin and Plavix were discontinued due to GI bleed. Patient underwent echocardiogram which showed a left ventricular apical thrombus, left ventricle EF of 30% with severe global left ventricular systolic dysfunction. He was started on heparin and then coumadin. Patients hgb has increased to 9.7 since admission. He will be transitioned to lovenox 80mg Q12h from heparin gtt. He will stay on lovenox and coumadin until INR is 2-3. For this patient will be transferred to [place] as he, nor his family is not able to manage his medications, give lovenox SQ, and with his hx of dementia it will be difficult for him to successfully be bridged onto coumadin. Patients plavix will be d/c. He will continue aspirin, simvastatin, and metoprolol. He will follow up with [place] [facility] and PCP. Furthermore, he will continue pantoprazole sodium 40mg Dialy and carafate QID. Follow up with outpatient GI. Hospital course: Mr. Mejia is a 80 year old male - Time Spent with Patient Total time spent providing and/or coordinating discharge services: - Constitutional Vitals: Temp Pulse Resp BP Pulse Ox 97.8 F 65 21 129/84 100 07/22/16 15:00 07/22/16 15:00 07/22/16 15:00 07/22/16 15:00 07/22/16 15:00 General appearance: Present: cooperative, A&O X 2, pleasant, no acute distress, answers questions appropriately - Head Head exam: Present: atraumatic, normocephalic - Eye Eye exam: Present: PERRL, conjuntiva pink, sclera anicteric - Neck Neck exam general surgery: Present: supple, trachea midline. Absent: lymphadenopathy - Respiratory Respiratory exam: Present: decreased breath sounds, wheezes. Absent: accessory muscle use, rales, rhonchi - GI/Abdominal GI/Abdominal exam: Present: normal bowel sounds, soft, no peritoneal signs. Absent: distended, tenderness - Extremities Exam Extremities exam: Present: warm, radial pulses palpable and symetrical. Absent : calf tenderness, cyanotic, pedal edema - Neurological Exam Neurological exam: Present: CN II-XII intact, no focal deficits. Absent: oriented X3 (x2 to self and place), pronater drift, facial droop, speech deficit - Psychiatric Psychiatric exam: Present: normal affect, normal mood - Skin Skin exam: Present: dry, intact - VTE Documentation of Mechanical Device: Intermittent pneumatic compression device <Jean Maya - Last Filed: 07/22/16 17:08> Date of Encounter: 07/22/16 - Discharge Diagnosis (1) GI bleed Status: Resolved Qualifiers: GI bleed type/associated pathology: duodenal ulcer Qualified Code(s): K26.4 - Chronic or unspecified duodenal ulcer with hemorrhage (2) Anemia Status: Acute Qualifiers: Anemia type: other cause Other causes of anemia: acute posthemorrhagic Qualified Code(s): D62 - Acute posthemorrhagic anemia (3) LV (left ventricular) mural thrombus Status: Acute (4) Coronary artery disease Status: Chronic Qualifiers: Coronary Disease-Associated Artery/Lesion type: [place] artery [place] vs. transplanted heart: [place] heart Associated angina: without angina Qualified Code(s): I25.10 - Atherosclerotic heart disease of [place] coronary artery without angina pectoris (5) COPD (chronic obstructive pulmonary disease) Status: Chronic Qualifiers: COPD type: unspecified COPD Qualified Code(s): J44.9 - Chronic obstructive pulmonary disease, unspecified (6) Hypertension Status: Chronic Qualifiers: Hypertension type: essential hypertension Qualified Code(s): I10 - Essential (primary) hypertension (7) Ischemic cardiomyopathy Status: Chronic (8) Chronic hypoxemic respiratory failure Status: Chronic Date of admission: 07/18/16 18:40 Primary care physician: PCP [place] Consults: 07/19/16 06:00 Consult to Gastroenterology [CONS] Routine Consulting Provider: Gastroenterology Nadia Reason for Consult: GI Bleed Call Completed: Yes 07/19/16 16:28 Consult to Cardiology [CONS] Routine Comment: Consulting Provider: Cardiology Nadia Reason for Consult: LV thrombus Call Completed: Yes Hospital course: Mr. Mejia is a 80 year old male - Time Spent with Patient Total time spent providing and/or coordinating discharge services: 40min - Constitutional Vitals: Temp Pulse Resp BP Pulse Ox 97.8 F 65 21 129/84 100 07/22/16 15:00 07/22/16 15:00 07/22/16 15:00 07/22/16 15:00 07/22/16 15:00 - Attending Attestation I examined this patient and my medical decision-making was reviewed with the Resident Physician on 07/22/16. I agree with the documented findings, disposition and treatment plan as described except to the extent set forth below. Mr. Mejia has been accepted at [place]. Please see progress note for further information. He will be bridged with Lovenox to coumadin for INR of 2-3. Follow up with outpatient cardiology.
--- NOTE | 2016-07-22 16:59 | Physician Discharge Referral ---
Home Health/Hosp Referral Info Transfer to: Home Health Attending Provider: Dr. Maya Provider in Charge Post Discharge: PCP - Diagnosis (1) GI bleed Priority: Primary Status: Resolved (2) LV (left ventricular) mural thrombus Priority: Secondary Status: Acute (3) Ischemic cardiomyopathy Priority: Secondary Status: Chronic (4) Pneumonia Priority: Secondary Status: Resolved (5) COPD (chronic obstructive pulmonary disease) Priority: Secondary Status: Chronic (6) DVT prophylaxis Priority: Secondary Status: Acute - Respiratory Orders Oxygen / L per min (2L) Smoking Cessation: Smoking cessation has been advised. For more information, call the [place] Tobacco Quit Line at 5-195-QCJI-NOW. - Diet/Nutrition Diet/Nutrition Orders: Cardiac - Activity Activity Orders: Up ad fred (with assist) - Services Needed Following services are medically necessary services: Nursing, Home Health Aide Other Treatments: Patient will have PT/INR every day. Currently patient is on warfarin 5mg PO HS. He is also on Lovenox 80mg BID SQ. Patient Continue both medications until patients INR is between 2-3. Bridging with lovenox will usually take five days. Then d/c lovenox and continue warfarin. Patients warfarin may need to be adjusted depending on his PT/INR, which can be done by coumadin clinic or pharmacy. - Transfer Medications Prescriptions: Pantoprazole Sodium 40 mg PO DAILY #30 tablet.dr Priest Medications: Albuterol Neb [Proventil Neb] 2.5 mg IH QID PRN 07/18/16 [History] Aspirin Enteric Coated [Aspirin EC] 81 mg PO DAILY 07/18/16 [History] Calcium Carbonate/Vitamin D3 [Calcium 500-Vit D3 200 Tablet] 1 each PO TID 07/18 [History] Capsaicin [Arthritis Pain Relief] 1 appl TP BID PRN 07/18/16 [History] DULoxetine [Cymbalta] 30 mg PO DAILY 07/18/16 [History] Docusate [Colace] 100 mg PO BID 07/18/16 [History] Finasteride [Proscar] 5 mg PO DAILY 07/18/16 [History] Furosemide [Lasix] 40 mg PO QPM 07/18/16 [History] Furosemide [Lasix] 60 mg PO QAM 07/18/16 [History] Gabapentin [Neurontin] 800 mg PO BID 07/18/16 [History] Metoprolol XL (24 HR) Succ [Toprol Xl] 50 mg PO DAILY 07/18/16 [History] Moxifloxacin OPTH Drops [Vigamox] 1 drop OP QID 07/18/16 [History] OxyCODONE Immed Rel [Roxicodone 5 MG] 10 mg PO BID 07/18/16 [History] Polyethylene Glycol 3350 [Smoothlax] 17 gm PO DAILY 07/18/16 [History] Potassium Chloride [K-Tab ER] 20 meq PO DAILY 07/18/16 [History] PrednisoLONE Acetate 1% Opth [PredFORTE 1%] 1 drop OP AD 07/18/16 [History] Sennosides [Senna] 8.6 mg PO BID 07/18/16 [History] Simvastatin [Zocor] 40 mg PO HS 07/18/16 [History] Spironolactone [Aldactone] 25 mg PO DAILY 07/18/16 [History] Terazosin HCl 2 mg PO HS 07/18/16 [History] Tiotropium [Spiriva] 18 mcg IH 0700 07/18/16 [History] Enoxaparin [Lovenox *PHARMACY WT BASED*] 80 mg SQ Q12HR mg 07/22/16 [Rx] Pantoprazole Sodium 40 mg PO DAILY #30 tablet. 07/22/16 [Rx] Sucralfate [Carafate] 1 gm PO QIDAC #120 tablet 07/22/16 [Rx] Warfarin perPT [Coumadin perPT] 1 each PO DAILY@1800 PRN #0 each 07/22/16 [Rx] Allergies/Adverse Reactions: Allergies No Known Allergies Allergy (Verified 07/18/16 16:07) Certification: Further, I certify that my clinical findings support that this patient is homebound (i.e. absences from home require considerable and taxing effort and are for medical reasons or [employer] [facility] or infrequently or short duration when for other reasons) because: Homebound Reason: Patient requires assistance of a person or device to safely leave home Attestation: My signature below is to certify that this patient is under my care and that I, or nurse practitioner, or a physician's assistant professor of psychology working with me, has a face-to -face encounter with this patient.
[2016-07-22] MEDS ORDERED: *HR* Warfarin 5 MG TABLET PO ONE (18:00)
[2016-07-22] MEDS ORDERED: *HR* Enoxaparin 80 MG/0.8 ML SYRINGE SQ SCH (18:00)
[2016-07-22] MEDS ORDERED: Warfarin perPT PO PRN (18:00)
== END 2016-07-22 19:49 | disposition short-term general hospital (02) | DRG 378 ==
LOC: EMEROO 15:54 → 2NENU 18:40
PROVIDERS: ADMIT Registered Nurse; ATTEND Internal Medicine
PROC: ENDOEBX (2016-07-19 09:00)